=== PATIENT | female | born 1995 | race African-American/Black ===

== ENCOUNTER 2022-05-01 15:26 | Emergency (ER) | payer OTHER, MEDICAID, SELFPAY ==
[2022-05-01 15:37] VITALS: BP 137/76; PULSE 121; RESP 20; TEMP 37.3; O2SAT 100; BMI 43.2
--- NOTE | 2022-05-01 18:33 | ED.GENADULT ---
HPI - General Adult General Chief complaint: Abdominal Pain Stated complaint: Food Poisoning, Time Seen by Provider: 05/01/22 18:08 Source: patient Mode of arrival: Family Vehicle History of Present Illness HPI narrative: Patient is a 26-year-old female who is here for evaluation of a couple days of abdominal pain. She thinks that it may have been because she was traveling from [place] to the local area and thought that she ate some tuna from a gas station. She is not had any nausea nor vomiting. Had a small bowel movement this morning. No diarrhea. She is a type 2 diabetic. Does not take insulin. Does not check her blood sugars. She is also having vaginal discharge. She has had vaginal discharge for months now. She is sexually active. She also used cocaine recently. Has not been evaluated for her vaginal discharge. Has not tried any medications for it. Related Data Previous Rx's Medication Instructions Recorded fluconazole 100 mg tablet 100 mg PO DAILY #1 tab 05/01/22 (Diflucan) metronidazole 500 mg tablet 500 mg PO BID 7 days #14 tabs 05/01/22 Allergies Allergy/AdvReac Type Severity Reaction Status Date / Time No Known Drug Allergies Allergy Verified 05/01/22 15:54 Review of Systems Constitutional Constitutional: Denies fever(s) Cardiovascular Cardiovascular: Reports system reviewed and no additional complaints, except as documented Respiratory Respiratory: Reports system reviewed and no additional complaints, except as documented Gastrointestinal Gastrointestinal: Reports abdominal pain, Denies diarrhea, Denies nausea and Denies vomiting Genitourinary Genitourinary: Denies dysuria, Reports vaginal discharge and Reports vaginal odor Integumentary/Breasts Skin/Breast: Reports system reviewed and no additional complaints, except as documented Neurologic Neurologic: Reports system reviewed and no additional complaints, except as documented Hematologic/Lymphatic On Anticoagulants: No Patient History Medical History Cocaine use Social History Smoking Status: Current every day smoker Smoking Status: Current every day smoker tobacco type: cigarettes and vaping alcohol intake frequency: 0-2 drinks per day Substance Use Type: marijuana, crack/cocaine, club/kitchen and bath designer drugs, inhalants and prescription drug Exam Initial Vital Signs Initial Vital Signs: Vital Signs Temperature 99.2 F 05/01/22 15:37 Pulse Rate 121 H 05/01/22 15:37 Respiratory Rate 20 05/01/22 15:37 Blood Pressure 137/76 05/01/22 15:37 Pulse Oximetry 100 05/01/22 15:37 Oxygen Delivery Method 05/01/22 15:37 Const General: cooperative, comfortable and well developed HENNE Head: normal to inspection and normocephalic Resp Effort & Inspection: normal respiratory effort Auscultation: clear to auscultation bilaterally Cardio Rate: regular rate Rhythm: regular rhythm GI Inspection: normal to inspection and non-distended Palpation: soft and No tender External Female Exam: normal external appearance Speculum Exam - Vagina: abnormal vaginal discharge, not erythematous, no lacerations and No vaginal bleeding Speculum Exam - Cervix: normal appearance of the cervix and nontender Bimanual Exam- Vagina & Uterus: No tender OB/External & Speculum: No vaginal bleeding Back/Spine/Pelvis Back: No CVA tenderness Skin General: no rashes or lesions noted Neuro General: patient alert, patient awake, patient oriented x3 and moves all extremities Extrem General: normal to inspection and capillary refill normal Course Orders Ordered: Discontinued Medications Fluconazole (Fluconazole 100 Mg Tablet) 100 mg PO NOW ONE Stop: 05/01/22 19:33 Last Admin: 05/01/22 19:49 Dose: 100 mg Documented By: LANDEN Metronidazole (Metronidazole 500 Mg Tablet) 500 mg PO NOW ONE Stop: 05/01/22 19:33 Last Admin: 05/01/22 19:49 Dose: 500 mg Documented By: LANDEN Ondansetron HCl (Ondansetron 4 Mg Odt) 4 mg PO NOW ONE Stop: 05/01/22 18:34 Last Admin: 05/01/22 19:49 Dose: 4 mg Documented By: LANDEN Ondansetron HCl (Ondansetron 4 Mg Odt Prepack) 1 bottle [facility] ONE Stop: 05/01/22 19:33 Last Admin: 05/01/22 19:49 Dose: 1 bottle Documented By: LANDEN Vital Signs Vital signs: Vital Signs - 8 hr 05/01/22 19:50 Pulse Rate 119 H Respiratory Rate 20 Blood Pressure 136/62 Pulse Oximetry 95 Oxygen Delivery Method Room Air Medical Decision Making Lab Data Result diagrams: 05/01/22 18:50 05/01/22 18:50 Labs: Lab Results 05/01/22 05/01/22 05/01/22 Range/Units 18:05 18:18 18:50 WBC 15.3 H (4.5-11.0) X10^3/uL RBC 4.91 (4.0-5.2) X10^6/uL Hgb 12.7 (12.0-16.0) g/dL Hct 38.0 (36-46) % MCV 77.3 L (80-100) fL MCH 25.8 L (26-34) PG MCHC 33.4 (30-36) % RDW 14.8 (11.6-14.8) % Plt Count 302 (150-400) X10^3/uL Neut % (Auto) 83.5 H (50-75) % Lymph % (Auto) 7.3 L (25-40) % Moffat % (Auto) 8.5 (3-14) % Eos % (Auto) 0.1 L (2-4) % Baso % (Auto) 0.6 (0-2) % Neut # (Auto) 41339 H (8105-2040) /uL Lymph # (Auto) 1100 (2517-9337) /uL Moffat # (Auto) 1300 H (0-900) /uL Eos # (Auto) 0 (0-450) /uL Baso # (Auto) 100 (0-100) /uL Sodium (137-145) mmol/L Potassium (3.4-5.1) mmol/L Chloride (98-107) mmol/L Carbon Dioxide (22-32) mmol/L BUN (7-17) mg/dL Creatinine (0.52-1.04) mg/dL Estimated GFR (>60) mL/min BUN/Creatinine Ratio (6-22) Glucose (70-100) mg/dL Calcium (8.4-10.2) mg/dL Urine RBC 1-5/hpf (0-5/HPF) Urine WBC >100/hpf H (0-5/HPF) Ur Squamous Epith Cells 1-5 /hpf (0-5/HPF) Amorphous Sediment 1+ Urine Bacteria Many (>30) H (None) Urine Mucus 1+ H (Negative) Ur Culture Indicated? Specimen cultured Ur Chlamydia DNA (PCR) Not detected N gonorrhoeae DNA (PCR) Detected H 05/01/22 Range/Units 18:50 WBC (4.5-11.0) X10^3/uL RBC (4.0-5.2) X10^6/uL Hgb (12.0-16.0) g/dL Hct (36-46) % MCV (80-100) fL MCH (26-34) PG MCHC (30-36) % RDW (11.6-14.8) % Plt Count (150-400) X10^3/uL Neut % (Auto) (50-75) % Lymph % (Auto) (25-40) % Moffat % (Auto) (3-14) % Eos % (Auto) (2-4) % Baso % (Auto) (0-2) % Neut # (Auto) (8596-7072) /uL Lymph # (Auto) (7928-1192) /uL Moffat # (Auto) (0-900) /uL Eos # (Auto) (0-450) /uL Baso # (Auto) (0-100) /uL Sodium 135 L (137-145) mmol/L Potassium 4.4 (3.4-5.1) mmol/L Chloride 99 (98-107) mmol/L Carbon Dioxide 26 (22-32) mmol/L BUN 8 (7-17) mg/dL Creatinine 0.95 (0.52-1.04) mg/dL Estimated GFR > 60 (>60) mL/min BUN/Creatinine Ratio 8.4 (6-22) Glucose 107 H (70-100) mg/dL Calcium 9.4 (8.4-10.2) mg/dL Urine RBC (0-5/HPF) Urine WBC (0-5/HPF) Ur Squamous Epith Cells (0-5/HPF) Amorphous Sediment Urine Bacteria (None) Urine Mucus (Negative) Ur Culture Indicated? Ur Chlamydia DNA (PCR) N gonorrhoeae DNA (PCR) Point of Care Testing Test Results Negative Urine Dip Bedside Urine Glucose Negative Bedside Urine Bilirubin - Negative Bedside Urine Ketone - Negative Urine Specific [place] 1.015 Bedside Urine Occult Blood +++ Bedside Urine pH 6 Bedside Urine Protein + 30 Bedside Urine Urobilinogen - Negative Bedside Urine Nitrite - Negative Bedside Urine Leukocytes ++ 125 Esterase Point of care testing: Point of Care Testing Test Results Negative Urine Dip Bedside Urine Glucose Negative Bedside Urine Bilirubin - Negative Bedside Urine Ketone - Negative Urine Specific [place] 1.015 Bedside Urine Occult Blood +++ Bedside Urine pH 6 Bedside Urine Protein + 30 Bedside Urine Urobilinogen - Negative Bedside Urine Nitrite - Negative Bedside Urine Leukocytes ++ 125 Esterase MDM Narrative Medical decision making narrative: Patient does have a very benign exam. Was able to tolerate oral intake. Has not had any nausea vomiting or diarrhea. Has had abdominal tenderness just for the past day or so. She is having vaginal discharge which apparently has been going on for months now. She is sexually active. She is no cervical motion tenderness. Low suspicion for PID. Is positive for yeast and also Trichomonas. She was given Diflucan and also a Flagyl to start her treatment. A prescription for Flagyl was sent to the pharmacy of her choice along with a another dose of Diflucan to take at the completion of the metronidazole treatment. After the patient was discharged her gonorrhea test came back positive as well. Chlamydia was negative. I attempted to contact the patient at the number provided in the chart ([phone]) it went directly to voice mail. This message was left at 0700 hours in the morning on 05/02/2022. I did leave a voicemail asking the patient to contact the emergency department as she will need to be returned for treatment for gonorrhea. 05/02/22 @1800 I once again left a message at the phone number provided in the record to have the patient call us back at the emergency department to discuss the results of her gonorrhea. Multiple attempts have been made by myself and Dr. Alston to contact the patient to let her know of the positive culture results. We have not received a phone call back. We have also contacted the phone number listed for the patient's mother and again have not received a return call. Discharge Plan Departure Patient Disposition: Home Clinical Impression: Yeast infection of the vagina, Infection due to trichomonas (vaginalis), Nausea Instructions: Facts About Sexually Transmitted Infections, DI for Vaginal Yeast Infection, DI for Nausea -- Adult Activity Restrictions/Additional Instructions: There was a urine culture pending at the time of your discharge and we will contact you if we need to treat you with any antibiotics. You were given a 1st dose of treatment for both yeast infection and the Trichomonas infection. The treatment for the Trichomonas infection is called metronidazole. This Will continue for the next 7 days. A prescription was sent to [facility]. You were also given another prescription for medicine called Diflucan. The streets the yeast infection. Please save this pill until you have finished the metronidazole. You can contact the call center here in the hospital at [phone]. They can help you establish a primary doctor. Return to the emergency department for any new or worsening symptoms. Prescriptions: New fluconazole [Diflucan] 100 mg tablet 100 mg PO DAILY Qty: 1 0RF Rx Instructions: take after you have finished the Flagyl/metronidazole metronidazole 500 mg tablet 500 mg PO BID 7 Days Qty: 14 0RF Visit Report Forms: Patient Portal/API
[2022-05-01 18:41] LABS: Amorphous Sediment Urine 1+; Bacteria Urine Many (>30); Culture Indicated Urine Specimen Cultured; Mucus Urine 1+ (Negative); RBC Urine 1-5/HPF (0-5/HPF); Squamous Epithelial Cell Urine 1-5 /HPF (0-5/HPF); WBC Urine >100/HPF (0-5/HPF)
[2022-05-01 19:04] LABS: Add Manual Diff / Slide Review NO; Basophils Absolute Auto 100 /uL (0-100); Basophils Percent Auto 0.6 % (0-2); Eosinophils Absolute Auto 0 /uL (0-450); Eosinophils Percent Auto 0.1 % (2-4); Hemoglobin 12.7 g/dL (12.0-16.0); Lymphocytes Absolute Auto 1100 /uL (1100-4500); Lymphocytes Percent Auto 7.3 % (25-40); Mean Corpuscular HGB Conc 33.4 % (30-36); Mean Corpuscular Hemoglobin 25.8 PG (26-34); Mean Corpuscular Volume 77.3 fL (80-100); Monocytes Absolute Auto 1300 /uL (0-900); Monocytes Percent Auto 8.5 % (3-14); Neutrophils Absolute Auto 12800 /uL (1500-7000); Neutrophils Percent Auto 83.5 % (50-75); Platelet Count 302 X10^3/uL (150-400); Red Blood Cell Count 4.91 X10^6/uL (4.0-5.2); Red Cell Distribution Width 14.8 % (11.6-14.8); White Blood Cell Count 15.3 X10^3/uL (4.5-11.0)
[2022-05-01 19:13] LABS: BUN Creatinine Ratio 8.4 (6-22); Blood Urea Nitrogen 8 mg/dL (7-17); Calcium 9.4 mg/dL (8.4-10.2); Carbon Dioxide 26 mmol/L (22-32); Chloride 99 mmol/L (98-107); Estimated Glomerular Filt Rate > 60 mL/min (>60); Glucose 107 mg/dL (70-100); HEMOLYSIS < 15 (0-50); Potassium 4.4 mmol/L (3.4-5.1); Sodium 135 mmol/L (137-145)
[2022-05-01] MEDS: FLUCONAZOLE 100 MG TABLET PO (19:49)
[2022-05-01] MEDS: ONDANSETRON 4 MG ODT PO (19:49)
[2022-05-01] MEDS: ONDANSETRON 4 MG ODT PREPACK 1 BOTTLE MISC (19:49)
[2022-05-01] MEDS: metroNIDAZOLE 500 MG TABLET PO (19:49)
[2022-05-01 19:50] VITALS: BP 136/62; PULSE 119; RESP 20; O2SAT 95
[2022-05-01 20:46] LABS: Urine N gonorrhoeae DETECTED
[2022-05-01 20:49] LABS: Urine Chlamydia NOT DETECTED
== END 2022-05-01 19:54 | disposition home or self-care (01) ==
PROVIDERS: Emergency Provider Emergency Medicine
DX: B37.3 Candidiasis of vulva and vagina (principal); A59.01 Trichomonal vulvovaginitis; R11.0 Nausea
CPT/HCPCS: 80048; 81003; 81015; 81025; 85025; 87077; 87086; 87186; 87210; 87491; 87591; 99283

== ENCOUNTER 2022-06-01 07:01 | Emergency (ER) | payer OTHER, MEDICAID, SELFPAY ==
--- NOTE | 2022-06-01 07:16 | ED_ITS ---
HPI - General Adult General Chief complaint: Skin/Abscess/Foreign Body Stated complaint: lump in lt forearm growing x5 days Time Seen by Provider: 06/01/22 07:11 Source: patient Mode of arrival: Ambulatory Limitations: no limitations History of Present Illness HPI narrative: Patient is a 26-year-old female who is here for evaluation of a lump that has been growing on the inside of her left elbow for the past couple days. She states that is very tender to the touch. No fevers. She states that approximately 1 week ago she did inject ?crystal meth ?into this area. She is never had an abscess like this in the past. It does hurt somewhat when she bends her elbow but not in the joint just over where the swelling is. Has not tried anything for the symptoms prior to arrival. Related Data Previous Rx's Medication Instructions Recorded fluconazole 100 mg tablet 100 mg PO DAILY #1 tab 05/01/22 (Diflucan) Allergies Allergy/AdvReac Type Severity Reaction Status Date / Time No Known Drug Allergies Allergy Verified 06/01/22 07:21 Review of Systems Constitutional Constitutional: Reports system reviewed and no additional complaints, except as documented Musculoskeletal Musculoskeletal: Reports system reviewed and no additional complaints, except as documented Integumentary/Breasts Skin/Breast: Reports system reviewed and no additional complaints, except as documented Neurologic Neurologic: Reports system reviewed and no additional complaints, except as documented Patient History Medical History Cocaine use Social History Smoking Status: Current every day smoker Smoking Status: Current every day smoker tobacco type: cigarettes and vaping alcohol intake frequency: 0-2 drinks per day Substance Use Type: marijuana, crack/cocaine, club/printed circuit board designer drugs, inhalants and prescription drug Exam Initial Vital Signs Initial Vital Signs: Vital Signs Temperature 97.1 F L 06/01/22 07:21 Pulse Rate 97 H 06/01/22 07:21 Respiratory Rate 18 06/01/22 07:21 Blood Pressure 131/79 06/01/22 07:21 Pulse Oximetry 98 06/01/22 07:21 Oxygen Delivery Method 06/01/22 07:21 Const General: cooperative, comfortable and No ill appearing HENMT Head: normal to inspection and normocephalic Cardio Pulses: radial pulses present on the left Skin Other: Patient does have a swelling over the inside portion of the left elbow. Minimal surrounding erythema however the patient does have fairly dark skin so it is difficult to fully ascertain this. Neuro Sensory Exam: no sensory deficits noted Extrem Other: Does have full range of motion of the left elbow. Psych Appearance: grossly normal and well kempt Procedures Abscess I/D I&D #1: Site: upper extremity Side (if applicable): left Sedation/analgesia: none Local Anesthetic: lidocaine 1% Amount of anesthesia used (mL): 2 Technique: incised with #11 blade Irrigation: No Packing used?: none Course Orders Ordered: Discontinued Medications Lidocaine HCl (Lidocaine 1% (Pf)) 2 ml INJ NOW ONE Stop: 06/01/22 07:17 Last Admin: 06/01/22 07:21 Dose: 2 ml Documented By: PARKER Vital Signs Vital signs: Vital Signs - 8 hr 06/01/22 07:21 Temperature 97.1 F L Pulse Rate 97 H Respiratory Rate 18 Blood Pressure 131/79 Pulse Oximetry 98 Oxygen Delivery Method Room Air Medical Decision Making MDM Narrative Medical decision making narrative: Bedside ultrasound shows a small abscess in the area of the induration. An inc ision and drainage was performed with return of a small amount of purulent material. There is minimal if any surrounding erythema. No cultures were obtained. No indication for antibiotics given the lack of a cellulitis. The area was covered with a bandage. Patient was given return precautions follow-up instructions. She expressed understanding and agreement. Discharge Plan Departure Patient Disposition: Home Clinical Impression: Abscess of skin or subcutaneous tissue Instructions: DI for Incision and Drainage of a Skin Abscess, DI for Skin Abscess Activity Restrictions/Additional Instructions: Expect some continued drainage from the area over the next 24-36 hours. You can change the bandage as needed. You can shower like normal. You can use soap and water over the area. You can take Tylenol/ibuprofen for any discomfort. Return to the emergency department for any new or worsening symptoms. Prescriptions: No Action fluconazole [Diflucan] 100 mg tablet 100 mg PO DAILY Qty: 1 0RF Rx Instructions: take after you have finished the Flagyl/metronidazole Referrals: Miscellaneous,Doctor, MD [Primary Care Provider] -
[2022-06-01 07:21] VITALS: BP 131/79; PULSE 97; RESP 18; TEMP 36.2; O2SAT 98; BMI 39.9
[2022-06-01] MEDS: LIDOCAINE 1% (PF) 2 ML INJ (07:21)
[2022-06-01] MEDS: ACETAMINOPHEN 325 MG TABLET 650 MG PO (07:47)
== END 2022-06-01 07:52 | disposition home or self-care (01) ==
PROVIDERS: Emergency Provider Emergency Medicine
DX: L02.414 Cutaneous abscess of left upper limb (principal)
CPT/HCPCS: 10060; 99283; 99284

== ENCOUNTER 2022-07-10 07:04 | Emergency (ER) | payer OTHER, MEDICAID, SELFPAY ==
[2022-07-10] VITALS (18 sets, daily range): BP systolic 119–138; BP diastolic 66–85; PULSE 84–115; RESP 10–25; TEMP 36.4; O2SAT 100; BMI 203.3
--- NOTE | 2022-07-10 08:57 | ED_ITS ---
HPI - Extremity Problem General Chief complaint: Extremity Problem,Nontraumatic Stated complaint: legs feel cold and numb, couldnt sleep Time Seen by Provider: 07/10/22 07:15 Source: patient Mode of arrival: Ambulatory Limitations: no limitations History of Present Illness HPI Narrative: This is a 26-year-old female who states she was diagnosed with diabetes in the past year she was unsure if she is supposed to be on oral medications or insulin this was in [facility], patient also admits to polysubstance abuse including methamphetamines and fentanyl. Patient presents stating today her legs felt cold and sort of tingly. She denies fevers or chills. She denies headaches. She denies chest pain or shortness of breath. No nausea or vomiting. No diarrhea constipation. No bladder or bowel incontinence. Patient states that she has had some back pain in her lower back with bending and movement. She states this is been going on for some time. She notes her legs feel funny mostly in the lower legs. She has been able to ambulate, not having any falls. She denies similar symptoms in the past. She states no environmental issues such as cold environments that should be causing her symptoms. She denies any daily medications but was post to take something for diabetes. Denies surgeries. No known drug allergies. She does use tobacco, occasional alcohol, admits to fentanyl and methamphetamine which she states she normally smokes but has injected methamphetamines in the past. Patient defers consultation with [employer]. Related Data Previous Rx's Medication Instructions Recorded fluconazole 100 mg tablet 100 mg PO DAILY #1 tab 05/01/22 (Diflucan) Allergies Allergy/AdvReac Type Severity Reaction Status Date / Time No Known Drug Allergies Allergy Verified 07/10/22 07:34 Review of Systems Review of Systems ROS Unobtainable: All systems reviewed & are unremarkable except as noted in HPI and below Patient History Medical History Cocaine use Social History Smoking Status: Current every day smoker Smoking Status: Current every day smoker tobacco type: cigarettes and vaping alcohol intake frequency: holidays/special occasions only Substance Use Type: opiates and methamphetamine Exam Narrative Exam Narrative: GEN: well nourished, well appearing female, alert and oriented x 3, patient appears to be in mild distress. HEENT: Atraumatic, pupils are equal round reactive to light, extraocular movements are intact, nares are clear. Throat is clear without any exudates, erythema, tonsillar enlargement or uvular deviation HEART: Regular rate and rhythm without murmur, clicks, rubs. Pulses are equal in upper and lower extremities LUNGS:Lungs clear to auscultation, no wheezes, rales, crackles, chest moves symmetrically ABD:bowel sounds normal, soft, non-tender, no guarding, rebound, rigidity, no masses noted, no hepatosplenomegaly :No CVA tenderness BACK: No cervical, thoracic or lumbar vertebral point tenderness. Patient is co mfortable oral and over on the bed but otherwise normal range of motion. Patient's gait is normal. Rectal exam is deferred. Muscle strength is 5/5 in lower extremities, DTRs are 2/4 and lower extremities. Dorsalis pedis and tibialis pulses are 2+ and lower extremities. Sensation is intact in the lower extremities. MSCL: Non-tender, no muscle atrophy, muscles strength 5/5 upper and lower ex tremities, full range of motion, normal gait NEURO:CN 2-12 intact, sensation normal, reflexes 2/4 upper and lower extremities. SKIN: Rash, erythema or skin changes. Initial Vital Signs Initial Vital Signs: Vital Signs Temperature 97.6 F 07/10/22 07:23 Pulse Rate 96 H 07/10/22 07:23 Respiratory Rate 17 07/10/22 07:23 Blood Pressure 128/85 07/10/22 07:23 Pulse Oximetry 100 07/10/22 07:23 Oxygen Delivery Method 07/10/22 07:23 Course Orders Ordered: ED Orders 07/10/22 12:44 MR lumbar spine wo/w con Stat Discontinued Medications Lorazepam (Lorazepam 2 Mg/Ml Inj) 0.5 mg IV NOW ONE Stop: 07/10/22 14:01 Lorazepam (Lorazepam 2 Mg/Ml Inj) 0.5 mg IV NOW ONE Stop: 07/10/22 13:00 Last Admin: 07/10/22 13:59 Dose: 0.5 mg Documented By: NR Vital Signs Vital signs: Vital Signs - 8 hr 07/10/22 12:00 07/10/22 12:30 07/10/22 13:00 Pulse Rate 92 H 96 H 98 H Respiratory Rate 21 12 14 Blood Pressure Pulse Oximetry 100 100 100 07/10/22 13:30 07/10/22 14:00 07/10/22 14:03 Pulse Rate 94 H 96 H 99 H Respiratory Rate 25 H 12 18 Blood Pressure Pulse Oximetry 100 100 100 07/10/22 14:03 07/10/22 16:27 07/10/22 16:28 Pulse Rate 103 H 115 H Respiratory Rate Blood Pressure 131/80 Pulse Oximetry 100 100 07/10/22 16:28 07/10/22 16:30 Pulse Rate 110 H Respiratory Rate Blood Pressure 127/81 Pulse Oximetry 100 MDM - Extremity (Nontraumatic) Lab Data Result diagrams: 07/10/22 09:40 07/10/22 09:40 Labs: Lab Results 07/10/22 07/10/22 07/10/22 Range/Units 09:40 09:40 09:40 WBC 7.3 (4.5-11.0) X10^3/uL RBC 4.75 (4.0-5.2) X10^6/uL Hgb 12.3 (12.0-16.0) g/dL Hct 37.2 (36-46) % MCV 78.4 L (80-100) fL MCH 25.9 L (26-34) PG MCHC 33.0 (30-36) % RDW 15.2 H (11.6-14.8) % Plt Count 350 (150-400) X10^3/uL Neut % (Auto) 71.0 (50-75) % Lymph % (Auto) 19.1 L (25-40) % [place] % (Auto) 8.5 (3-14) % Eos % (Auto) 0.6 L (2-4) % Baso % (Auto) 0.8 (0-2) % Neut # (Auto) 5200 (8490-8991) /uL Lymph # (Auto) 1400 (1077-4622) /uL [place] # (Auto) 600 (0-900) /uL Eos # (Auto) 0 (0-450) /uL Baso # (Auto) 100 (0-100) /uL ESR 42 H (0-20) MM/HR Sodium 141 (137-145) mmol/L Potassium 3.8 (3.4-5.1) mmol/L Chloride 100 (98-107) mmol/L Carbon Dioxide 29 (22-32) mmol/L BUN 10 (7-17) mg/dL Creatinine 0.88 (0.52-1.04) mg/dL Estimated GFR > 60 (>60) mL/min BUN/Creatinine Ratio 11.4 (6-22) Glucose 89 (70-100) mg/dL Hemoglobin A1c (4.0-6.0) % Lactate 0.9 (0.7-2.1) mmol/L Calcium 9.6 (8.4-10.2) mg/dL Total Bilirubin 0.7 (0.2-1.3) mg/dL AST 44 H (14-36) IU/L ALT 21 (<35) IU/L Alkaline Phosphatase 87 (38-126) U/L Total Creatine Kinase 754 H (30-135) U/L CK-MB (CK-2) 3.60 H (<2.37) ng/mL CK-MB (CK-2) Rel Index 0.5 L (1.5-5.0) % Troponin I < 0.012 (0.01-0.034) ng/mL C-Reactive Protein 1.5 H (<1.0) mg/dL Total Protein 8.8 H (6.3-8.2) g/dL Albumin 4.4 (3.5-5.0) g/dL Globulin 4.4 H (1.7-4.1) g/dL Albumin/Globulin Ratio 1.0 (1.0-2.8) Procalcitonin 0.08 (<0.5) ng/mL Chlamy pneumoniae PCR (Not Detect) Adenovirus (PCR) (Not Detect) B. pertussis DNA (PCR) (Not Detecte) B.parapertussis DNA PCR (Not Detecte) Coronavirus OC43 (PCR) (Not Detect) Coronavirus HKU1 (PCR) (Not Detect) Coronavirus 229E (PCR) (Not Detect) SARS-CoV-2 (PCR) (Negative) Coronavirus NL63 (PCR) (Not Detect) Human Metapneumovir PCR (Not Detect) Influenza A (RT-PCR) (NEGATIVE) Influenza Type A (PCR) (Not Detect) Influenza B (RT-PCR) (NEGATIVE) Influenza Type B (PCR) (Not Detect) M. pneumoniae (PCR) (Not Detect) Parainfluenza 1 (PCR) (Not Detect) Parainfluenza 2 (PCR) (Not Detect) Parainfluenza 3 (PCR) (Not Detect) Parainfluenza 4 (PCR) (Not Detect) RSV (PCR) (Negative) Entero/Rhino (PCR) (Not Detect) 07/10/22 07/10/22 07/10/22 Range/Units 09:40 10:16 10:16 WBC (4.5-11.0) X10^3/uL RBC (4.0-5.2) X10^6/uL Hgb (12.0-16.0) g/dL Hct (36-46) % MCV (80-100) fL MCH (26-34) PG MCHC (30-36) % RDW (11.6-14.8) % Plt Count (150-400) X10^3/uL Neut % (Auto) (50-75) % Lymph % (Auto) (25-40) % [place] % (Auto) (3-14) % Eos % (Auto) (2-4) % Baso % (Auto) (0-2) % Neut # (Auto) (4906-7820) /uL Lymph # (Auto) (8200-9833) /uL [place] # (Auto) (0-900) /uL Eos # (Auto) (0-450) /uL Baso # (Auto) (0-100) /uL ESR (0-20) MM/HR Sodium (137-145) mmol/L Potassium (3.4-5.1) mmol/L Chloride (98-107) mmol/L Carbon Dioxide (22-32) mmol/L BUN (7-17) mg/dL Creatinine (0.52-1.04) mg/dL Estimated GFR (>60) mL/min BUN/Creatinine Ratio (6-22) Glucose (70-100) mg/dL Hemoglobin A1c 6.5 H (4.0-6.0) % Lactate (0.7-2.1) mmol/L Calcium (8.4-10.2) mg/dL Total Bilirubin (0.2-1.3) mg/dL AST (14-36) IU/L ALT (<35) IU/L Alkaline Phosphatase (38-126) U/L Total Creatine Kinase (30-135) U/L CK-MB (CK-2) (<2.37) ng/mL CK-MB (CK-2) Rel Index (1.5-5.0) % Troponin I (0.01-0.034) ng/mL C-Reactive Protein (<1.0) mg/dL Total Protein (6.3-8.2) g/dL Albumin (3.5-5.0) g/dL Globulin (1.7-4.1) g/dL Albumin/Globulin Ratio (1.0-2.8) Procalcitonin (<0.5) ng/mL Chlamy pneumoniae PCR Not detected (Not Detect) Adenovirus (PCR) Not detected (Not Detect) B. pertussis DNA (PCR) Not detected (Not Detecte) B.parapertussis DNA PCR Not detected (Not Detecte) Coronavirus OC43 (PCR) Not detected (Not Detect) Coronavirus HKU1 (PCR) Not detected (Not Detect) Coronavirus 229E (PCR) Not detected (Not Detect) SARS-CoV-2 (PCR) Negative Not detected (Negative) Coronavirus NL63 (PCR) Not detected (Not Detect) Human Metapneumovir PCR Not detected (Not Detect) Influenza A (RT-PCR) Flu a negative (NEGATIVE) Influenza Type A (PCR) Not detected (Not Detect) Influenza B (RT-PCR) Flu b negative (NEGATIVE) Influenza Type B (PCR) Not detected (Not Detect) M. pneumoniae (PCR) Not detected (Not Detect) Parainfluenza 1 (PCR) Not detected (Not Detect) Parainfluenza 2 (PCR) Not detected (Not Detect) Parainfluenza 3 (PCR) Not detected (Not Detect) Parainfluenza 4 (PCR) Not detected (Not Detect) RSV (PCR) Negative Not detected (Negative) Entero/Rhino (PCR) Not detected (Not Detect) Point of Care Testing Glucose POC 81 Imaging Data MRI Lspine: Radiologist's Impression: Close Lumbar Spine MRI (Signed) Corby Champion - 07/10/22 Launch?[address] [address] Magnetic Resonance Report Signed Patient: Pedrito Sanon MR#: [id number] : 1995 Acct:[id number] Age/Sex: 26 / F Date of Service: 07/10/22 Loc: ED Accession Number: [id number] ?? Procedure: MR lumbar spine wo/w con Ordering Provider: Irene Alston D.O. PROCEDURE:? MR LUMBAR SPINE WO/W CON ? INDICATIONS:? back pain, legs feel funny, hx ivda ? TECHNIQUE:? Noncontrast sagittal T1 spin echo and T2 fast spin echo, sagittal STIR, axial T1 and T2 fast spin echo through the lumbar spine.? In cases with scoliosis, additional coronal T2 fast spin echo may be performed.? After the administration of contrast, sagittal and axial T1 spin echo with fat saturation through the lumbar spine.? ? COMPARISON:? None. ? FINDINGS:? Image quality:? Excellent.? ? Alignment and curvature:? There is normal bony alignment.? ? Marrow:? Marrow is of normal overall signal.? No acute vertebral body compression fractures.? No suspicious marrow enhancement.? ? Spinal cord:? Conus medullaris terminates at the L1 level.? Visualized spinal cord demonstrates normal signal, without suspicious enhancement.? ? Paraspinous soft tissues:? No paravertebral masses or abnormal enhancement.? ? T12-L1:? Normal appearance.? ? L1-L2:? Normal appearance.? ? L2-L3:? Normal appearance.? ? L3-L4:? Normal appearance.? ? L4-L5:? The disc height and disk signal are well-preserved. Mild generalized disc bulge is seen.? There is a superimposed central disc protrusion. ? There is mild right-sided and no left-sided neural foraminal narrowing. Minimal central canal narrowing is seen.? ? L5-S1:? Mild loss of disc height is seen. Loss of disc signal is seen.? Mild disc bulge is seen, with a central disc extrusion, with mild inferior migration of the disc material.? Mild to moderate facet hypertrophy is seen.? Mild to moderate bilateral neural foraminal narrowing can be seen, left worse than right. Mild central canal narrowing is seen.? ? ? IMPRESSION:? No findings of epidural abscess, discitis, or osteomyelitis can be seen within the thoracic spine.? - If there is strong clinical concern for spinal infection in this patient, please consider follow-up cervical spine MRI/thoracic spine MRI (without and with contrast) for further evaluation. ? Premature lower lumbar spine degenerative changes are seen, including a mild central disc extrusion at the L5-S1 level. ? No abnormal enhancement is seen.? Dictated by: Corby Champion M.D. on 07/10/2022 at 14:41 ? ? Approved by: Corby Champion M.D. on 07/10/2022 at 14:44?? MDM Narrative Medical decision making narrative: This is a 26-year-old female who comes in with vague complaint of weakness and sensation changes that are coldness in her legs. She appears neurovascularly intact she walked into the department she does not has significant changes neurologically, influenza swab was negative. Patient does have a history of injecting drugs, she has some mild low back pain although not reproducible with palpation no skin changes but L-spine MRI was obtained, labs show some elevated ESR CRP, cultures are pending but no other clear infection was found. Patient does not have other clear source, her examination does not me highly suspicious for cervical or thoracic involvement and her overall exam is reassuring so will discharge but with return precautions. Patient is ambulating in the department. She does have a hemoglobin A1c of 6.5, discussed she would benefit from being on oral medication. Discharge Plan Departure Patient Disposition: Home Clinical Impression: Lower extremity pain Activity Restrictions/Additional Instructions: Your imaging today is reassuring. You do have blood cultures pending this take 48 hours to result if positive we will contact you for antibiotics. You do appear to have diabetes, your hemoglobin A1c is 6.5 it is recommended you take medication daily. Please follow-up to start this medication. Your MRI does not show any acute change today, if you have worsening or persistent symptoms please follow-up for further workup with your physician. You can take and/or ibuprofen for discomfort. If you develop fevers, new or worsening chest pain, shortness of breath, new weakness, loss of sensation, loss of bowel or bladder control or other new or concerning changes please return. Prescriptions: No Action fluconazole [Diflucan] 100 mg tablet 100 mg PO DAILY Qty: 1 0RF Rx Instructions: take after you have finished the Flagyl/metronidazole Referrals: Reece Moser MD [Physician] - Miscellaneous,MD Elpidio [Primary Care Provider] - Stand Alone Forms: Work Release Note Visit Report Forms: Patient Portal/API
--- NOTE | 2022-07-10 09:13 | PC.NURSE ---
pt woke up in middle of night feeling cold extremities starting at feet and getting worse. moved up to mid thighs.
[2022-07-10 09:49] LABS: Add Manual Diff / Slide Review NO; Basophils Absolute Auto 100 /uL (0-100); Basophils Percent Auto 0.8 % (0-2); Eosinophils Absolute Auto 0 /uL (0-450); Eosinophils Percent Auto 0.6 % (2-4); Hematocrit 37.2 % (36-46); Hemoglobin 12.3 g/dL (12.0-16.0); Lymphocytes Absolute Auto 1400 /uL (1100-4500); Lymphocytes Percent Auto 19.1 % (25-40); Mean Corpuscular Hemoglobin 25.9 PG (26-34); Mean Corpuscular Volume 78.4 fL (80-100); Monocytes Absolute Auto 600 /uL (0-900); Monocytes Percent Auto 8.5 % (3-14); Neutrophils Absolute Auto 5200 /uL (1500-7000); Platelet Count 350 X10^3/uL (150-400); Red Blood Cell Count 4.75 X10^6/uL (4.0-5.2); Red Cell Distribution Width 15.2 % (11.6-14.8); White Blood Cell Count 7.3 X10^3/uL (4.5-11.0)
[2022-07-10 10:05] LABS: Lactate (Lactic Acid) 0.9 mmol/L (0.7-2.1)
[2022-07-10 10:07] LABS: Hemoglobin A1C% w Est Avg Glu 6.5 % (4.0-6.0)
[2022-07-10 10:10] LABS: Alanine Aminotransferase 21 IU/L (<35); Albumin 4.4 g/dL (3.5-5.0); Alkaline Phosphatase 87 U/L (38-126); Aspartate Aminotransferase 44 IU/L (14-36); BUN Creatinine Ratio 11.4 (6-22); Bilirubin Total 0.7 mg/dL (0.2-1.3); Blood Urea Nitrogen 10 mg/dL (7-17); C-Reactive Protein Quant 1.5 mg/dL (<1.0); Calcium 9.6 mg/dL (8.4-10.2); Carbon Dioxide 29 mmol/L (22-32); Chloride 100 mmol/L (98-107); Creatine Kinase 754 U/L (30-135); Estimated Glomerular Filt Rate > 60 mL/min (>60); Globulin 4.4 g/dL (1.7-4.1); Glucose 89 mg/dL (70-100); HEMOLYSIS < 15 (0-50); Potassium 3.8 mmol/L (3.4-5.1); Sodium 141 mmol/L (137-145); Total Protein 8.8 g/dL (6.3-8.2)
[2022-07-10 10:18] LABS: Erythrocyte Sedimentation Rate 42 MM/HR (0-20)
[2022-07-10 10:21] LABS: Troponin I < 0.012 ng/mL (0.01-0.034)
[2022-07-10 10:22] LABS: CKMB % Relative Index 0.5 % (1.5-5.0)
[2022-07-10 10:26] LABS: Procalcitonin 0.08 ng/mL (<0.5)
[2022-07-10 11:09] LABS: Influenza A - CEPHEID Flu A NEGATIVE (NEGATIVE); Influenza B - CEPHEID Flu B NEGATIVE (NEGATIVE); Respiratory Syncytial Virus Negative (Negative)
[2022-07-10 11:18] LABS: COVID-19 CEPHEID 4-PLEX PCR Negative (Negative)
[2022-07-10 11:26] LABS: Adenovirus Not Detected (Not Detect)
[2022-07-10 11:27] LABS: B. parapertussis Not Detected (Not Detecte); Bordetella pertussis Not Detected (Not Detecte); Chlamydophila pneumoniae Not Detected (Not Detect); Coronavirus 229E Not Detected (Not Detect); Coronavirus HKU1 Not Detected (Not Detect); Coronavirus NL 63 Not Detected (Not Detect); Coronavirus OC43 Not Detected (Not Detect); Human Metapneumovirus Not Detected (Not Detect); Human Rhinovirus/Enterovirus Not Detected (Not Detect); Influenza A Not Detected (Not Detect); Influenza B Not Detected (Not Detect); Mycoplasma pneumoniae Not Detected (Not Detect); Parainfluenza Virus 1 Not Detected (Not Detect); Parainfluenza Virus 2 Not Detected (Not Detect); Parainfluenza Virus 3 Not Detected (Not Detect); Parainfluenza Virus 4 Not Detected (Not Detect); Respiratory Syncytial Virus Not Detected (Not Detect); SARS- CoV-2 Not Detected (Not Detecte)
--- NOTE | 2022-07-10 12:44 | DI.MRI.S_ITS ---
PROCEDURE: MR LUMBAR SPINE WO/W CON INDICATIONS: back pain, legs feel funny, hx ivda TECHNIQUE: Noncontrast sagittal T1 spin echo and T2 fast spin echo, sagittal STIR, axial T1 and T2 fast spin echo through the lumbar spine. In cases with scoliosis, additional coronal T2 fast spin echo may be performed. After the administration of contrast, sagittal and axial T1 spin echo with fat saturation through the lumbar spine. COMPARISON: None. FINDINGS: Image quality: Excellent. Alignment and curvature: There is normal bony alignment. Marrow: Marrow is of normal overall signal. No acute vertebral body compression fractures. No suspicious marrow enhancement. Spinal cord: Conus medullaris terminates at the L1 level. Visualized spinal cord demonstrates normal signal, without suspicious enhancement. Paraspinous soft tissues: No paravertebral masses or abnormal enhancement. T12-L1: Normal appearance. L1-L2: Normal appearance. L2-L3: Normal appearance. L3-L4: Normal appearance. L4-L5: The disc height and disk signal are well-preserved. Mild generalized disc bulge is seen. There is a superimposed central disc protrusion. There is mild right-sided and no left-sided neural foraminal narrowing. Minimal central canal narrowing is seen. L5-S1: Mild loss of disc height is seen. Loss of disc signal is seen. Mild disc bulge is seen, with a central disc extrusion, with mild inferior migration of the disc material. Mild to moderate facet hypertrophy is seen. Mild to moderate bilateral neural foraminal narrowing can be seen, left worse than right. Mild central canal narrowing is seen. IMPRESSION: No findings of epidural abscess, discitis, or osteomyelitis can be seen within the thoracic spine. - If there is strong clinical concern for spinal infection in this patient, please consider follow-up cervical spine MRI/thoracic spine MRI (without and with contrast) for further evaluation. Premature lower lumbar spine degenerative changes are seen, including a mild central disc extrusion at the L5-S1 level. No abnormal enhancement is seen. Dictated by: Corby Champion M.D. on 07/10/2022 at 14:41 Approved by: Corby Champion M.D. on 07/10/2022 at 14:44
[2022-07-10] MEDS: LORazepam 2 MG/ML INJ 0.5 MG IV (13:59)
== END 2022-07-10 16:36 | disposition home or self-care (01) ==
PROVIDERS: Emergency Provider Emergency Medicine
DX: M79.605 Pain in left leg (principal); M79.604 Pain in right leg; R53.1 Weakness; M54.50 Low back pain, unspecified
CPT/HCPCS: 0241U; 36415; 72158; 80053; 82550; 82553; 82962; 83036; 83605; 84145; 84484; 85025; 85651; 86140; 87040; 87633; 99284; J2060

== ENCOUNTER 2022-08-12 13:46 | Emergency (ER) | payer OTHER, MEDICAID, SELFPAY ==
[2022-08-12] VITALS (25 sets, daily range): BP systolic 97–132; BP diastolic 56–91; PULSE 84–109; RESP 10–24; TEMP 36.6; O2SAT 95–100; BMI 37.1
--- NOTE | 2022-08-12 14:43 | ED_ITS ---
HPI - Overdose <Alma Meek DO - Last Filed: 08/17/22 07:22> General Chief Complaint: Toxicology Problem Stated Complaint: unresponsive, but breathing Time Seen by Provider: 08/12/22 13:55 Source: EMS Mode of arrival: EMS History of Present Illness HPI Narrative: Patient is a healthy 26-year-old female who presents as an overdose. She was at her aunt's house she went outside to smoke. She admits to crushing 4 pills and smoking them. She was found unresponsive. She received 4 mg of Narcan intranasally and 2 IV. She reports that she has had thoughts of hurting herself. In fact she reported to her brother the other day that she thought she might want to kill herself. It is unclear if this is intentional or not. She is quite upset. Related Data Previous Rx's Medication Instructions Recorded fluconazole 100 mg tablet 100 mg PO DAILY #1 tab 05/01/22 (Diflucan) Allergies Allergy/AdvReac Type Severity Reaction Status Date / Time No Known Drug Allergies Allergy Verified 07/10/22 07:34 Review of Systems <Alma Meek DO - Last Filed: 08/17/22 07:22> Review of Systems ROS Unobtainable: All systems reviewed & are unremarkable except as noted in HPI and below Patient History <DO Jean-Claude James Last Filed: 08/17/22 07:22> Medical History Cocaine use Social History Smoking Status: Current every day smoker Smoking Status: Current every day smoker tobacco type: cigarettes and vaping alcohol intake frequency: holidays/special occasions only Substance Use Type: marijuana, crack/cocaine, heroin, opiates and methamphetamine Exam <Alma Meek DO - Last Filed: 08/17/22 07:22> Initial Vital Signs Initial Vital Signs: Vital Signs Pulse Rate 109 H 08/12/22 13:57 Pulse Oximetry 100 08/12/22 13:57 Oxygen Delivery Method 08/12/22 13:57 Oxygen Flow Rate 2 08/12/22 13:57 GENERAL: Tearful shaking responsive HEENT: Head atraumatic,EOMI, pupils reactive, face symmetric, moist mucous membranes CARDIOVASCULAR: Regular rate and rhythm without murmurs, rubs or gallops. RESPIRATORY: Breath sounds equal bilaterally, no wheezes rales or rhonchi. ABDOMEN: Soft, nontender. Normoactive bowel sounds all 4 quadrants. No g uarding or rebound. EXTREMITIES: Normal range of motion, no clubbing or edema. Neurovascularly inta ct NEUROLOGICAL: Alert and oriented x4. SKIN: Warm, dry, no laceration, no petechiae, no rashes or lesions. <Edmar Walden, DO - Last Filed: 08/13/22 03:51> Initial Vital Signs Initial Vital Signs: Vital Signs Pulse Rate 109 H 08/12/22 13:57 Pulse Oximetry 100 08/12/22 13:57 Oxygen Delivery Method 08/12/22 13:57 Oxygen Flow Rate 2 08/12/22 13:57 Course <Alma Meek DO - Last Filed: 08/17/22 07:22> Orders Ordered: Discontinued Medications Ondansetron HCl (Ondansetron 4 Mg/2 Ml Inj) 4 mg IV NOW ONE Stop: 08/12/22 13:57 Last Admin: 08/12/22 15:46 Dose: Not Given Documented By: HERBERT Vital Signs Vital signs: Vital Signs - 8 hr 08/12/22 19:59 08/12/22 20:30 08/12/22 20:00 Pulse Rate 93 H 84 93 H Blood Pressure 108/66 109/58 L Pulse Oximetry 100 99 99 Oxygen Delivery Method Room Air Room Air 08/12/22 20:01 08/12/22 20:01 08/12/22 20:30 Pulse Rate 93 H Blood Pressure 106/59 L 109/58 L Pulse Oximetry 100 Oxygen Delivery Method 08/12/22 20:30 08/12/22 21:00 08/12/22 21:00 Pulse Rate 84 91 H Blood Pressure 109/58 L Pulse Oximetry 99 96 Oxygen Delivery Method 08/12/22 21:30 08/12/22 21:30 08/12/22 22:00 Pulse Rate 92 H 92 H Blood Pressure 97/56 L 97/56 L 104/56 L Pulse Oximetry 96 96 Oxygen Delivery Method 08/12/22 22:00 08/12/22 23:30 08/13/22 00:01 Pulse Rate 102 H 93 H 90 Blood Pressure 98/60 104/58 L Pulse Oximetry 96 96 97 Oxygen Delivery Method Room Air Room Air 08/13/22 00:33 08/13/22 01:07 08/13/22 01:39 Pulse Rate 93 H 96 H 94 H Blood Pressure 106/55 L 106/55 L 108/55 L Pulse Oximetry 94 89 L 98 Oxygen Delivery Method Room Air Room Air Room Air 08/13/22 02:10 08/13/22 02:40 08/13/22 03:19 Pulse Rate 89 92 H 87 Blood Pressure 110/56 L 109/56 L 116/72 Pulse Oximetry 97 95 100 Oxygen Delivery Method Room Air Room Air Room Air <Edmar Walden, DO - Last Filed: 08/13/22 03:51> Orders Ordered: Discontinued Medications Ondansetron HCl (Ondansetron 4 Mg/2 Ml Inj) 4 mg IV NOW ONE Stop: 08/12/22 13:57 Last Admin: 08/12/22 15:46 Dose: Not Given Documented By: HERBERT Vital Signs Vital signs: Vital Signs - 8 hr 08/12/22 19:59 08/12/22 20:30 08/12/22 20:00 Pulse Rate 93 H 84 93 H Blood Pressure 108/66 109/58 L Pulse Oximetry 100 99 99 Oxygen Delivery Method Room Air Room Air 08/12/22 20:01 08/12/22 20:01 08/12/22 20:30 Pulse Rate 93 H Blood Pressure 106/59 L 109/58 L Pulse Oximetry 100 Oxygen Delivery Method 08/12/22 20:30 08/12/22 21:00 08/12/22 21:00 Pulse Rate 84 91 H Blood Pressure 109/58 L Pulse Oximetry 99 96 Oxygen Delivery Method 08/12/22 21:30 08/12/22 21:30 08/12/22 22:00 Pulse Rate 92 H 92 H Blood Pressure 97/56 L 97/56 L 104/56 L Pulse Oximetry 96 96 Oxygen Delivery Method 08/12/22 22:00 08/12/22 23:30 08/13/22 00:01 Pulse Rate 102 H 93 H 90 Blood Pressure 98/60 104/58 L Pulse Oximetry 96 96 97 Oxygen Delivery Method Room Air Room Air 08/13/22 00:33 08/13/22 01:07 08/13/22 01:39 Pulse Rate 93 H 96 H 94 H Blood Pressure 106/55 L 106/55 L 108/55 L Pulse Oximetry 94 89 L 98 Oxygen Delivery Method Room Air Room Air Room Air 08/13/22 02:10 08/13/22 02:40 08/13/22 03:19 Pulse Rate 89 92 H 87 Blood Pressure 110/56 L 109/56 L 116/72 Pulse Oximetry 97 95 100 Oxygen Delivery Method Room Air Room Air Room Air MDM - Overdose <Alma Meek, DO - Last Filed: 08/17/22 07:22> Lab Data Result diagrams: 08/12/22 14:40 08/12/22 14:40 Labs: Lab Results 08/12/22 08/12/22 08/12/22 Range/Units 14:40 14:40 14:40 WBC 9.5 (4.5-11.0) X10^3/uL RBC 4.87 (4.0-5.2) X10^6/uL Hgb 12.6 (12.0-16.0) g/dL Hct 39.1 (36-46) % MCV 80.2 (80-100) fL MCH 26.0 (26-34) PG MCHC 32.4 (30-36) % RDW 14.9 H (11.6-14.8) % Plt Count 294 (150-400) X10^3/uL Neut % (Auto) 85.5 H (50-75) % Lymph % (Auto) 9.0 L (25-40) % [place] % (Auto) 5.1 (3-14) % Eos % (Auto) 0.2 L (2-4) % Baso % (Auto) 0.2 (0-2) % Neut # (Auto) 8100 H (2705-9655) /uL Lymph # (Auto) 900 L (7567-7357) /uL [place] # (Auto) 500 (0-900) /uL Eos # (Auto) 0 (0-450) /uL Baso # (Auto) 0 (0-100) /uL Sodium 134 L (137-145) mmol/L Potassium 5.0 (3.4-5.1) mmol/L Chloride 98 (98-107) mmol/L Carbon Dioxide 28 (22-32) mmol/L BUN 10 (7-17) mg/dL Creatinine 0.92 (0.52-1.04) mg/dL Estimated GFR > 60 (>60) mL/min BUN/Creatinine Ratio 10.9 (6-22) Glucose 206 H (70-100) mg/dL Lactate 2.1 (0.7-2.1) mmol/L Calcium 8.7 (8.4-10.2) mg/dL Total Bilirubin 0.3 (0.2-1.3) mg/dL AST 24 (14-36) IU/L ALT 18 (<35) IU/L Alkaline Phosphatase 80 (38-126) U/L Total Protein 8.2 (6.3-8.2) g/dL Albumin 4.2 (3.5-5.0) g/dL Globulin 4.0 (1.7-4.1) g/dL Albumin/Globulin Ratio 1.1 (1.0-2.8) Serum , Qual (Negative) Salicylates < 1.0 (<20) mg/dL U Opiates 300ng/mL cut (Negative) Ur Oxycodone Screen (Negative) Urine Methadone Screen (Negative) Acetaminophen < 10 (10-30) ug/mL Ur Barbiturates Screen (Negative) U Tricyclic Antidepress (Negative) Ur Phencyclidine Scrn (Negative) Ur Amphetamines Screen (Negative) U Methamphetamines Scrn (Negative) Ur MDMA Scrn (Ecstasy) (Negative) U Benzodiazepines Scrn (Negative) Urine Cocaine Screen (Negative) U Marijuana (THC) Screen (Negative) Ethyl Alcohol < 10 ( - 10) mg/dL SARS-CoV-2 (PCR) (Negative) Influenza A (RT-PCR) (NEGATIVE) Influenza B (RT-PCR) (NEGATIVE) RSV (PCR) (Negative) 08/12/22 08/12/22 08/12/22 Range/Units 14:40 16:20 16:28 WBC (4.5-11.0) X10^3/uL RBC (4.0-5.2) X10^6/uL Hgb (12.0-16.0) g/dL Hct (36-46) % MCV (80-100) fL MCH (26-34) PG MCHC (30-36) % RDW (11.6-14.8) % Plt Count (150-400) X10^3/uL Neut % (Auto) (50-75) % Lymph % (Auto) (25-40) % [place] % (Auto) (3-14) % Eos % (Auto) (2-4) % Baso % (Auto) (0-2) % Neut # (Auto) (8232-9884) /uL Lymph # (Auto) (7369-1921) /uL [place] # (Auto) (0-900) /uL Eos # (Auto) (0-450) /uL Baso # (Auto) (0-100) /uL Sodium (137-145) mmol/L Potassium (3.4-5.1) mmol/L Chloride (98-107) mmol/L Carbon Dioxide (22-32) mmol/L BUN (7-17) mg/dL Creatinine (0.52-1.04) mg/dL Estimated GFR (>60) mL/min BUN/Creatinine Ratio (6-22) Glucose (70-100) mg/dL Lactate (0.7-2.1) mmol/L Calcium (8.4-10.2) mg/dL Total Bilirubin (0.2-1.3) mg/dL AST (14-36) IU/L ALT (<35) IU/L Alkaline Phosphatase (38-126) U/L Total Protein (6.3-8.2) g/dL Albumin (3.5-5.0) g/dL Globulin (1.7-4.1) g/dL Albumin/Globulin Ratio (1.0-2.8) Serum , Qual Negative (Negative) Salicylates (<20) mg/dL U Opiates 300ng/mL cut Negative (Negative) Ur Oxycodone Screen Negative (Negative) Urine Methadone Screen Negative (Negative) Acetaminophen (10-30) ug/mL Ur Barbiturates Screen Negative (Negative) U Tricyclic Antidepress Negative (Negative) Ur Phencyclidine Scrn Negative (Negative) Ur Amphetamines Screen Negative (Negative) U Methamphetamines Scrn Negative (Negative) Ur MDMA Scrn (Ecstasy) Negative (Negative) U Benzodiazepines Scrn Negative (Negative) Urine Cocaine Screen Negative (Negative) U Marijuana (THC) Screen Negative (Negative) Ethyl Alcohol ( - 10) mg/dL SARS-CoV-2 (PCR) Negative (Negative) Influenza A (RT-PCR) (NEGATIVE) Influenza B (RT-PCR) (NEGATIVE) RSV (PCR) (Negative) 08/13/22 Range/Units 00:40 WBC (4.5-11.0) X10^3/uL RBC (4.0-5.2) X10^6/uL Hgb (12.0-16.0) g/dL Hct (36-46) % MCV (80-100) fL MCH (26-34) PG MCHC (30-36) % RDW (11.6-14.8) % Plt Count (150-400) X10^3/uL Neut % (Auto) (50-75) % Lymph % (Auto) (25-40) % [place] % (Auto) (3-14) % Eos % (Auto) (2-4) % Baso % (Auto) (0-2) % Neut # (Auto) (2357-5784) /uL Lymph # (Auto) (9050-8735) /uL [place] # (Auto) (0-900) /uL Eos # (Auto) (0-450) /uL Baso # (Auto) (0-100) /uL Sodium (137-145) mmol/L Potassium (3.4-5.1) mmol/L Chloride (98-107) mmol/L Carbon Dioxide (22-32) mmol/L BUN (7-17) mg/dL Creatinine (0.52-1.04) mg/dL Estimated GFR (>60) mL/min BUN/Creatinine Ratio (6-22) Glucose (70-100) mg/dL Lactate (0.7-2.1) mmol/L Calcium (8.4-10.2) mg/dL Total Bilirubin (0.2-1.3) mg/dL AST (14-36) IU/L ALT (<35) IU/L Alkaline Phosphatase (38-126) U/L Total Protein (6.3-8.2) g/dL Albumin (3.5-5.0) g/dL Globulin (1.7-4.1) g/dL Albumin/Globulin Ratio (1.0-2.8) Serum , Qual (Negative) Salicylates (<20) mg/dL U Opiates 300ng/mL cut (Negative) Ur Oxycodone Screen (Negative) Urine Methadone Screen (Negative) Acetaminophen (10-30) ug/mL Ur Barbiturates Screen (Negative) U Tricyclic Antidepress (Negative) Ur Phencyclidine Scrn (Negative) Ur Amphetamines Screen (Negative) U Methamphetamines Scrn (Negative) Ur MDMA Scrn (Ecstasy) (Negative) U Benzodiazepines Scrn (Negative) Urine Cocaine Screen (Negative) U Marijuana (THC) Screen (Negative) Ethyl Alcohol ( - 10) mg/dL SARS-CoV-2 (PCR) Negative (Negative) Influenza A (RT-PCR) Flu a negative (NEGATIVE) Influenza B (RT-PCR) Flu b negative (NEGATIVE) RSV (PCR) Negative (Negative) Point of Care Testing Glucose POC 190 MDM Narrative Medical decision making narrative: Patient overdosed on opiates was given Narcan in field by EMS. Now awake and shaking. Very remorseful and tearful. She is requesting help and detox. Also thinks that it was intentional. She is had suicidal thoughts. Blood work is ov erall reassuring. Patient is medically cleared. She is been evaluated by social work waiting for voluntary placement. Signed out to Dr. Walden <Edmar Walden, DO - Last Filed: 08/13/22 03:51> Lab Data Labs: Lab Results 08/12/22 08/12/22 08/12/22 Range/Units 14:40 14:40 14:40 WBC 9.5 (4.5-11.0) X10^3/uL RBC 4.87 (4.0-5.2) X10^6/uL Hgb 12.6 (12.0-16.0) g/dL Hct 39.1 (36-46) % MCV 80.2 (80-100) fL MCH 26.0 (26-34) PG MCHC 32.4 (30-36) % RDW 14.9 H (11.6-14.8) % Plt Count 294 (150-400) X10^3/uL Neut % (Auto) 85.5 H (50-75) % Lymph % (Auto) 9.0 L (25-40) % [place] % (Auto) 5.1 (3-14) % Eos % (Auto) 0.2 L (2-4) % Baso % (Auto) 0.2 (0-2) % Neut # (Auto) 8100 H (8279-0085) /uL Lymph # (Auto) 900 L (0015-3172) /uL [place] # (Auto) 500 (0-900) /uL Eos # (Auto) 0 (0-450) /uL Baso # (Auto) 0 (0-100) /uL Sodium 134 L (137-145) mmol/L Potassium 5.0 (3.4-5.1) mmol/L Chloride 98 (98-107) mmol/L Carbon Dioxide 28 (22-32) mmol/L BUN 10 (7-17) mg/dL Creatinine 0.92 (0.52-1.04) mg/dL Estimated GFR > 60 (>60) mL/min BUN/Creatinine Ratio 10.9 (6-22) Glucose 206 H (70-100) mg/dL Lactate 2.1 (0.7-2.1) mmol/L Calcium 8.7 (8.4-10.2) mg/dL Total Bilirubin 0.3 (0.2-1.3) mg/dL AST 24 (14-36) IU/L ALT 18 (<35) IU/L Alkaline Phosphatase 80 (38-126) U/L Total Protein 8.2 (6.3-8.2) g/dL Albumin 4.2 (3.5-5.0) g/dL Globulin 4.0 (1.7-4.1) g/dL Albumin/Globulin Ratio 1.1 (1.0-2.8) Serum , Qual (Negative) Salicylates < 1.0 (<20) mg/dL U Opiates 300ng/mL cut (Negative) Ur Oxycodone Screen (Negative) Urine Methadone Screen (Negative) Acetaminophen < 10 (10-30) ug/mL Ur Barbiturates Screen (Negative) U Tricyclic Antidepress (Negative) Ur Phencyclidine Scrn (Negative) Ur Amphetamines Screen (Negative) U Methamphetamines Scrn (Negative) Ur MDMA Scrn (Ecstasy) (Negative) U Benzodiazepines Scrn (Negative) Urine Cocaine Screen (Negative) U Marijuana (THC) Screen (Negative) Ethyl Alcohol < 10 ( - 10) mg/dL SARS-CoV-2 (PCR) (Negative) Influenza A (RT-PCR) (NEGATIVE) Influenza B (RT-PCR) (NEGATIVE) RSV (PCR) (Negative) 08/12/22 08/12/22 08/12/22 Range/Units 14:40 16:20 16:28 WBC (4.5-11.0) X10^3/uL RBC (4.0-5.2) X10^6/uL Hgb (12.0-16.0) g/dL Hct (36-46) % MCV (80-100) fL MCH (26-34) PG MCHC (30-36) % RDW (11.6-14.8) % Plt Count (150-400) X10^3/uL Neut % (Auto) (50-75) % Lymph % (Auto) (25-40) % [place] % (Auto) (3-14) % Eos % (Auto) (2-4) % Baso % (Auto) (0-2) % Neut # (Auto) (7990-4019) /uL Lymph # (Auto) (7844-0304) /uL [place] # (Auto) (0-900) /uL Eos # (Auto) (0-450) /uL Baso # (Auto) (0-100) /uL Sodium (137-145) mmol/L Potassium (3.4-5.1) mmol/L Chloride (98-107) mmol/L Carbon Dioxide (22-32) mmol/L BUN (7-17) mg/dL Creatinine (0.52-1.04) mg/dL Estimated GFR (>60) mL/min BUN/Creatinine Ratio (6-22) Glucose (70-100) mg/dL Lactate (0.7-2.1) mmol/L Calcium (8.4-10.2) mg/dL Total Bilirubin (0.2-1.3) mg/dL AST (14-36) IU/L ALT (<35) IU/L Alkaline Phosphatase (38-126) U/L Total Protein (6.3-8.2) g/dL Albumin (3.5-5.0) g/dL Globulin (1.7-4.1) g/dL Albumin/Globulin Ratio (1.0-2.8) Serum , Qual Negative (Negative) Salicylates (<20) mg/dL U Opiates 300ng/mL cut Negative (Negative) Ur Oxycodone Screen Negative (Negative) Urine Methadone Screen Negative (Negative) Acetaminophen (10-30) ug/mL Ur Barbiturates Screen Negative (Negative) U Tricyclic Antidepress Negative (Negative) Ur Phencyclidine Scrn Negative (Negative) Ur Amphetamines Screen Negative (Negative) U Methamphetamines Scrn Negative (Negative) Ur MDMA Scrn (Ecstasy) Negative (Negative) U Benzodiazepines Scrn Negative (Negative) Urine Cocaine Screen Negative (Negative) U Marijuana (THC) Screen Negative (Negative) Ethyl Alcohol ( - 10) mg/dL SARS-CoV-2 (PCR) Negative (Negative) Influenza A (RT-PCR) (NEGATIVE) Influenza B (RT-PCR) (NEGATIVE) RSV (PCR) (Negative) 08/13/22 Range/Units 00:40 WBC (4.5-11.0) X10^3/uL RBC (4.0-5.2) X10^6/uL Hgb (12.0-16.0) g/dL Hct (36-46) % MCV (80-100) fL MCH (26-34) PG MCHC (30-36) % RDW (11.6-14.8) % Plt Count (150-400) X10^3/uL Neut % (Auto) (50-75) % Lymph % (Auto) (25-40) % [place] % (Auto) (3-14) % Eos % (Auto) (2-4) % Baso % (Auto) (0-2) % Neut # (Auto) (8566-3089) /uL Lymph # (Auto) (7389-3060) /uL [place] # (Auto) (0-900) /uL Eos # (Auto) (0-450) /uL Baso # (Auto) (0-100) /uL Sodium (137-145) mmol/L Potassium (3.4-5.1) mmol/L Chloride (98-107) mmol/L Carbon Dioxide (22-32) mmol/L BUN (7-17) mg/dL Creatinine (0.52-1.04) mg/dL Estimated GFR (>60) mL/min BUN/Creatinine Ratio (6-22) Glucose (70-100) mg/dL Lactate (0.7-2.1) mmol/L Calcium (8.4-10.2) mg/dL Total Bilirubin (0.2-1.3) mg/dL AST (14-36) IU/L ALT (<35) IU/L Alkaline Phosphatase (38-126) U/L Total Protein (6.3-8.2) g/dL Albumin (3.5-5.0) g/dL Globulin (1.7-4.1) g/dL Albumin/Globulin Ratio (1.0-2.8) Serum , Qual (Negative) Salicylates (<20) mg/dL U Opiates 300ng/mL cut (Negative) Ur Oxycodone Screen (Negative) Urine Methadone Screen (Negative) Acetaminophen (10-30) ug/mL Ur Barbiturates Screen (Negative) U Tricyclic Antidepress (Negative) Ur Phencyclidine Scrn (Negative) Ur Amphetamines Screen (Negative) U Methamphetamines Scrn (Negative) Ur MDMA Scrn (Ecstasy) (Negative) U Benzodiazepines Scrn (Negative) Urine Cocaine Screen (Negative) U Marijuana (THC) Screen (Negative) Ethyl Alcohol ( - 10) mg/dL SARS-CoV-2 (PCR) Negative (Negative) Influenza A (RT-PCR) Flu a negative (NEGATIVE) Influenza B (RT-PCR) Flu b negative (NEGATIVE) RSV (PCR) Negative (Negative) Point of Care Testing Glucose POC 190 MDM Narrative Medical decision making narrative: Patient overdosed on opiates was given Narcan in field by EMS. Now awake and shaking. Very remorseful and tearful. She is requesting help and detox. Also thinks that it was intentional. She is had suicidal thoughts. Blood work is overall reassuring. Patient is medically cleared. She is been evaluated by social work waiting for voluntary placement. Signed out to Dr. Win Walden: Received turned over. Reviewed patient's history and physical. Patient is medically cleared. She is remained calm. Patient has been evaluated and accepted at mental health facility. Patient is voluntary. She is stable for transport. Naloxone at Discharge Meets criteria for naloxone at discharge?: Yes Reason patient is not provided naloxone?: Transferring patient Discharge Plan Departure Patient Disposition: Xfer [facility] Clinical Impression: Suicide ideation, Drug overdose Prescriptions: No Action fluconazole [Diflucan] 100 mg tablet 100 mg PO DAILY Qty: 1 0RF Rx Instructions: take after you have finished the Flagyl/metronidazole Referrals: Miscellaneous,Doctor, MD [Primary Care Provider] -
[2022-08-12 14:53] LABS: Add Manual Diff / Slide Review NO; Basophils Absolute Auto 0 /uL (0-100); Basophils Percent Auto 0.2 % (0-2); Eosinophils Absolute Auto 0 /uL (0-450); Eosinophils Percent Auto 0.2 % (2-4); Hematocrit 39.1 % (36-46); Hemoglobin 12.6 g/dL (12.0-16.0); Lymphocytes Absolute Auto 900 /uL (1100-4500); Mean Corpuscular HGB Conc 32.4 % (30-36); Mean Corpuscular Volume 80.2 fL (80-100); Monocytes Absolute Auto 500 /uL (0-900); Monocytes Percent Auto 5.1 % (3-14); Neutrophils Absolute Auto 8100 /uL (1500-7000); Neutrophils Percent Auto 85.5 % (50-75); Platelet Count 294 X10^3/uL (150-400); Red Blood Cell Count 4.87 X10^6/uL (4.0-5.2); Red Cell Distribution Width 14.9 % (11.6-14.8); White Blood Cell Count 9.5 X10^3/uL (4.5-11.0)
[2022-08-12 15:10] LABS: Acetaminophen < 10 ug/mL (10-30); Alanine Aminotransferase 18 IU/L (<35); Albumin 4.2 g/dL (3.5-5.0); Albumin Globulin Ratio 1.1 (1.0-2.8); Alkaline Phosphatase 80 U/L (38-126); Aspartate Aminotransferase 24 IU/L (14-36); BUN Creatinine Ratio 10.9 (6-22); Bilirubin Total 0.3 mg/dL (0.2-1.3); Blood Urea Nitrogen 10 mg/dL (7-17); Calcium 8.7 mg/dL (8.4-10.2); Carbon Dioxide 28 mmol/L (22-32); Chloride 98 mmol/L (98-107); Estimated Glomerular Filt Rate > 60 mL/min (>60); Ethanol (ETOH) < 10 mg/dL; Glucose 206 mg/dL (70-100); HEMOLYSIS < 15 (0-50); Salicylate < 1.0 mg/dL (<20); Sodium 134 mmol/L (137-145); Total Protein 8.2 g/dL (6.3-8.2)
[2022-08-12 15:11] LABS: Lactate (Lactic Acid) 2.1 mmol/L (0.7-2.1); Pregnancy Test Serum,Qual Negative (Negative)
--- NOTE | 2022-08-12 15:45 | PC.NURSE ---
talking with the [employer]OR
--- NOTE | 2022-08-12 16:30 | CM.DANOTE ---
Patient is a 26 yo female who was admitted to [facility] ED today 08/12/22 after intentional overdose with fentanyl. Pt has [employer] and [employer] for insurance. EMR was reviewed. MANAGER FIRE consult placed by ED MD due to pt's suicide attempt. MANAGER FIRE met bedside with pt and see PORSHA moss below: LANDSCAPING AND GROUNDSKEEPING LABORER and manager market development to begin the search for Voluntary Inpt Tx for stabilization and med management as pt not currently safe for least restrictive alternative. CARLTON Jon, [facility] Discharge Planning/Care Management ED Psychiatric Symptoms Assessment Start: 08/12/22 14:41 Freq: Status: Active Protocol: Document 08/12/22 14:30 RLS (Rec: 08/12/22 14:48 RLS [id number]) Psychiatric Symptoms Assessment Symptoms/Complaint Suicidal Ideation Onset today History Of Same Yes Context Not Taking Psychiatric Medications Associated Psychiatric Symptoms Suicidal Ideation Associated Symptoms Denies Other Symptoms If Self Harm Admits Thoughts of Self Harm, Has Acted on Plan,Has Plans, Intentional Overdose Details of Plan states she told her brother that she was going to kill herself a few days ago. states that she smoked 4 blue pills today. fentanyl and some other med that she is not sure of. Level of Observation Continuous Precautions Safety precautions initiated Room placement non-ligature mitigated room Level of Consciousness Alert,Appropriate,Awake Patient Orientation Name,Age Patient Behavior/Mood Cooperative Ability to Follow Directions Good Patient Cognition Impaired No Affect Description Calm Patient Appearance Well Groomed,Unkempt Hallucination Type None Delusion Description Not Present Thought Process: Normal Depressive Symptoms Difficulty Concentrating, Feelings of Worthlessness, Hopelessness,Recurrent Thoughts of or Suicide Feelings of Hopelessness Yes Suicidal Ideation Frequent Suicide Plan Organized,Specific,Feasible, High Lethality Homicidal Ideation None Nausea/Vomiting None MANAGER FIRE - Ribbon Cleaner Assessment Start: 08/12/22 16:14 Freq: Status: Active Protocol: Document 08/12/22 16:15 BF (Rec: 08/12/22 16:30 BF [id number]) MANAGER FIRE/Ribbon Cleaner Assessment Start date 08/12/22 Visit Start Time 15:30 End date 08/12/22 Visit End Time 16:10 Total time Care Management spent on 60 min patient visit-in minutes Presenting Problem Pt admitted to the ED via EMS due to overdose/unresponsive and intentional suicide attempt, given narcan 6 times by EMS Precipitating Event(s) Pt has significant grief and loss hx with recent loss of best friend in May and increased drug use to cope. Patient Strengths Has some self awareness and insight and candid about her experiences and use. Current Behavioral Health Provider(s) none Include Facility, Provider, Ph. # Psych. Hx Mental Health and Chemical Pt has a hx of mental health Dependency counseling last year but no current established provider and no hx of [facility] tx Psychiatric Hospitalizations (date(s)/ none location) Psychosocial information & Support Pt lives with her mom and they Systems moved this year from [place] area after pt's father and other family members recently and pt and mother have a strained relationship stemming from substance use and choices School/Work Denies Presenting Problem Pt states she started using cocain in December of this year 2021 from a friend in [place] and then a while later she tried meth with a boy she liked hoping it would make their relationship stronger. Precipitating Event(s) Pt states she began using cocain to deal with her sad grief feelings and then tried meth and then fentanyl. Current Behavioral Health Provider(s) none Include Facility, Provider, Ph. # Rehab Facilities? ((Date(s), Location(s) no hx [facility] tx ) History of Withdrawal? Seizures? denies Longest Period of Sobriety Has used almost daily since January 2022 this year Legal Matters - Outstanding Issues Denies Orientation (Person/Place/Time) Pt alert and oriented x4 Stated Mood Pt tearful and sad during assessment and clearly still has not worked on grief from the deaths of those close to her. Affect (Congruent with Mood?) Somewhat flat affect and tearful during discussion and honest in her answers. Thought Content - Specify/Describe Pt denies any visual or Obsessions, Delusions, Hallucinations auditory disturbances and does not appear to be reacting to any external stimuli. Pt denies any obsessions Thought Processes (Klakfrk-Yruswtgi-Fwyk Detailed, logical, some Pvtosfeb-Ygixfppm-Oaphyyyeeh- ambivilance but admits to Jvajqaonwzabhc-Prnfgun-Rqooaxmythvm- feeling that she needs help Thought Blocking) and cannot manage on her own anymore Speech (Uwidnj-Sqjm-Udjtztj-Rapid-Soft- Normal Loud-Pressured) Motor (Cheuig-Avyltfdmt-Jdsq-Other) Normal to slow Insight (Sgqs-Oxqr-Obah/Limited) Insight is Fair and aware that she cannot manage her grief or stop her drug use on her own at this time without professional help Judgement (Zcau-Faaq-Vxkq/Limited) Fair Impulse Control (Adequate-Impaired) Impaired as evidenced by intentional overdose Memory (Xhfgkaoal-Obrvkj-Mmmvys, Immediate Impaired-Intact) Concentration (Intact-Impaired) Intact Attention (Intact-Impaired) Intact Behavior (Appropriate-Inappropriate) Appropriate, willing to participate in discussion and voluntary Suicidal Ideation (Plan) Yes Intervention MANAGER FIRE met bedside with pt and mother in ED room 6 and pt able to have most recall from the events leading up to her decision to intentionally overdose on Fentanyl as she typically only takes one pill at a time but intentionally took 4 after feeling hopeless and alone in her grief and loss and recent of her closest friend. Pt lives with her mom and has had a strained relationship with her since they moved here and pt' s drug use has increased as a way for pt to self medicate and cope. Pt only started drugs this year in the summer but has progressed in her use. Pt denies dealing with her grief and denies any recent counseling and has not sought [facility] tx yet. SW discussed possible options for discharge from the hospital and discussed Inpt [facility] tx and pt acknowledges that she is risky for d/c directly to the community at this time as she is still feeling very sad, tearful, suicidal ideation and has access to more drugs or options for suicide attempt. Pt mentioned to her brother a couple days ago that she felt suicidal and then intentionally overdosed today with her mother home who fortunately found pt and called EMS. Pt and mother feel that Inpt tx needed at this time due to risk factors and pt voluntarily willing to participate. RA Plan MANAGER FIRE updated manager market development and MD and all in agreement that pt too risky for d/c back to the community without any current established MH/[facility] providers available and would benefit from Inpt Tx for stabilization and med management as pt with active depression and grief without any current prescribed medications.
[2022-08-12 16:34] LABS: UR Morphine/Opiate cutoff 300 Negative (Negative); Ur Creatinine Normal (Normal); Ur Specific Gravity Normal (Normal); Urine Amphetamines Negative (Negative); Urine Barbiturates Negative (Negative); Urine Benzodiazepines Negative (Negative); Urine Cocaine Negative (Negative); Urine MDMA Negative (Negative); Urine Methadone Negative (Negative); Urine Methamphetamines Negative (Negative); Urine Oxycodone Negative (Negative); Urine Phencyclidine Negative (Negative); Urine Tetrahydrocannabinol Negative (Negative); Urine Tricyclic Antidepressant Negative (Negative); Urine pH Normal (Normal)
[2022-08-12 16:46] LABS: Reflexed Lactate in 2 Hours Y
--- NOTE | 2022-08-12 16:47 | PC.NURSE ---
Mother took a square pill box that has 4 blue pills with the letter M. patient states they are more fentanyl pills. mom reports she is going to take a picture of them and throw them away. I offered to dispose them in our pharmaceutic bin. she declined. Dr. Meek aware.
[2022-08-12 16:54] LABS: COVID19 -Nasal RAPID Negative (Negative)
--- NOTE | 2022-08-12 19:47 | PC.NURSE ---
WOOD DRILL OPERATOR note: placed belongings in locked cabinet with labels.
--- NOTE | 2022-08-12 22:26 | PC.NURSE ---
Addendum entered by Antonietta Melvin CNA 08/12/22 22:31: Jose: spoke to Kayli. She said they have beds, but to look if I can find other placement before they can chat with us. [facility]: Not taking patients currently. But they can pre-screen patient. Sent paperwork over. They said they may have a couple d/cs in the am Isai August: left message for Stephanie. Called their charge nurse at [phone] --- They aren't taking patients tonight. Is[facility] Ugalde: was told to call [phone] . That number didn't work it was a clinic[facility] [employer] [facility]. [facility]: took information, sent over her ER report, FUNERAL ATTENDANT report, and labs Updated nurse Original Note: GEOPHYSICAL COMPUTER note: Attempting to find bed for patient. Used social work Twila's note as a compass. [facility]: have female beds; sent labs, transfer report, FUNERAL ATTENDANT note, doctor's report, and facesheet. Will call us back. [facility]: patient has [employer] insurance and needs authorization for placement. I attempted to get that by calling their [phone] number, but I couldn't get through their phone system. They have one open bed, but need to ask questions once authorization is cleared.
[2022-08-13] VITALS (48 sets, daily range): BP systolic 95–125; BP diastolic 55–76; PULSE 80–114; RESP 15; TEMP 36.5–36.8; O2SAT 85–100
--- NOTE | 2022-08-13 | PC.NURSE ---
resp. even and steady. pt. eyes are closed, chest rising and falling
--- NOTE | 2022-08-13 00:16 | PC.NURSE ---
pt. eyes closed, resp. even, chest rising and falling
--- NOTE | 2022-08-13 00:32 | PC.NURSE ---
pt. eyes closed, resp. even, chest rising and falling
--- NOTE | 2022-08-13 00:47 | PC.NURSE ---
pt. eyes closed. resp. are even, chest is rising and falling.
--- NOTE | 2022-08-13 01:00 | PC.NURSE ---
pt. eyes are closed. resp. even, chest is rising and falling
--- NOTE | 2022-08-13 01:15 | PC.NURSE ---
pt. eyes are closed. resp are even. chest is rising and falling. adj. pulse ox
[2022-08-13 01:26] LABS: Influenza A - CEPHEID Flu A NEGATIVE (NEGATIVE); Influenza B - CEPHEID Flu B NEGATIVE (NEGATIVE); Respiratory Syncytial Virus Negative (Negative)
[2022-08-13 01:27] LABS: COVID-19 CEPHEID 4-PLEX PCR Negative (Negative)
--- NOTE | 2022-08-13 01:45 | PC.NURSE ---
pt. eyes are closed, resp. are even. chest is rising and falling
--- NOTE | 2022-08-13 02:00 | PC.NURSE ---
pt. eyes are closed, resp. are even. chest is rising and falling
--- NOTE | 2022-08-13 02:30 | PC.NURSE ---
pt. eyes are closed. resp. are even, chest is rising and falling.
--- NOTE | 2022-08-13 02:45 | PC.NURSE ---
pt. eyes are closed. chest is rising and falling, pt. mouth is open breathing. resp. are even
--- NOTE | 2022-08-13 03:02 | PC.NURSE ---
pt. is lying down, on the phone with a facility on interview
--- NOTE | 2022-08-13 03:18 | PC.NURSE ---
assisted pt. to ambulate to the bathroom. pt. was able to ambulate solo.
--- NOTE | 2022-08-13 03:34 | PC.NURSE ---
pt. sitting up in bed, eyes closed, chest is rising and falling
--- NOTE | 2022-08-13 03:48 | PC.NURSE ---
CHILDHOOD TEACHER note: [facility] accepted patient, needed to interview patient, gave her a phone, and she interviewed w/ [facility]. They accepted. They asked for us to arrange transport to either before 0500 or after 0730. Called [facility], originally got a 1510 order picker/assembler time. Called [facility]. Got a 10am order picker/assembler. Took that time. Called [facility] and cancelled (thanked them profusely.). Gave Mayda medical social worker, a call and let her know the time for order picker/assembler here. When patient leaves ER, RN is to call [phone] to give report. Alerted nurses and doctor of the plan. Will fill out paperwork and create packet for transport. Told patient of plan.
--- NOTE | 2022-08-13 03:49 | PC.NURSE ---
pt. sitting up, eyes closed, resp. even, chest is rising falling. pt. woke to vitals machine.
--- NOTE | 2022-08-13 04:01 | PC.NURSE ---
pt. asked for a blanket, gave two
--- NOTE | 2022-08-13 04:30 | PC.NURSE ---
pt. lying down, head raised, eyes closed. resp. are even, chest is falling and rising.
--- NOTE | 2022-08-13 04:45 | PC.NURSE ---
pt. lying down, eyes closed. resp. are even. chest is rising and falling
--- NOTE | 2022-08-13 05:00 | PC.NURSE ---
pt. eyes closed, chest is rising and falling.resp. even
--- NOTE | 2022-08-13 05:30 | PC.NURSE ---
pt. lying down w/eyes closed. resp. are even, chest is rising and falling
--- NOTE | 2022-08-13 05:45 | PC.NURSE ---
pt. lying down, eyes closed. resp. normal, chest is falling and rising
--- NOTE | 2022-08-13 07:00 | PC.NURSE ---
pt. eyes are closed. resp. are even, chest is rising and falling
--- NOTE | 2022-08-13 07:15 | PC.NURSE ---
pt. eyes closed, chest rising and falling, resp. are even
--- NOTE | 2022-08-13 08:00 | PC.NURSE ---
pt. is eating breakfast.
--- NOTE | 2022-08-13 08:32 | PC.NURSE ---
pt. eyes are closed, chest is falling and rising, resp. are even
--- NOTE | 2022-08-13 09:15 | PC.NURSE ---
pt. eyes closed, chest rising and falling, resp. are even
--- NOTE | 2022-08-13 09:30 | PC.NURSE ---
pt. eyes closed, chest is rising and falling, pt. is snoring, resp. are even
--- NOTE | 2022-08-13 11:03 | PC.NURSE ---
pt. requested to use bathroom and successfully ambulated to and from. pt. asked for juice, was given cranberry and orange juice in paper cups.
--- NOTE | 2022-08-21 12:15 | PC.NURSE ---
Spoke with Junior ([phone]) w/ [facility]. Information exchanged regarding + STD.
== END 2022-08-13 15:56 ==
PROVIDERS: Emergency Medicine; Emergency Provider Emergency Medicine
DX: R45.851 Suicidal ideations (principal); T50.7X1A Poisoning by analeptics and opioid receptor antagonists, accidental (unintentional), initial encounter; Z20.822 Contact with and (suspected) exposure to COVID-19
CPT/HCPCS: 0241U; 80053; 80305; 80320; 80329; 83605; 84703; 85025; 87635; 99285; C9803; G0480

== ENCOUNTER 2022-10-04 10:59 | Emergency (ER) | payer OTHER, MEDICAID, SELFPAY ==
[2022-10-04 11:16] VITALS: BP 137/63; PULSE 84; RESP 16; TEMP 35.9; O2SAT 100; BMI 34.9
[2022-10-04 15:30] VITALS: BP 111/60; PULSE 102; RESP 16; O2SAT 100
--- NOTE | 2022-10-04 16:43 | CM.SWNOTE ---
Addendum entered by Ivana Boyer 10/04/22 17:08: Per ED provider, Radha Hassan PA-C, patient is requesting detox. INTERNATIONAL SALES MANAGER re-enters room and discusses that since last substance use was 2 days or more ago detox will likely not accept patient ([facility] detox is full, [facility] and [facility] likely full as well, [facility] and [facility] full). INTERNATIONAL SALES MANAGER provides patient with list of [facility] resources and discusses option for MAT and list of detox facilities for patient to call at any time. ED provider to provide rx upon d/c. Ivana Boyer, [facility] Original Note: INTERNATIONAL SALES MANAGER Assessment Note Patient is 26 y/o female who presents to ED due to concerns for substance use withdrawals. Patient reports she used Methamphetamine laced with Fentanyl. Patient endorses I did drugs, I feel sucky. Patient has no current PCP, she was scheduled for PCP appt to seek Dr. Partha Nicole on 08/25/22 but patient states she was unable to go/forgot and missed the appt. Patient has [facility] Medicaid insurance. INTERNATIONAL SALES MANAGER enters room to meet with patient. Patient presents as A/Ox4, euthymic, full range, congruent with mood. Patient endorses she presented to ED because she did not feel well after substance use, patient endorses she currently feels dizzy. Patient endorses use used Meth that was laced with fentanyl. Patient endorses she resides in an apartment in [facility] [facility] [address], she states she feels safe there, patient endorses she is employed at [employer] in the [employer]. Patient denies current SI, HI or self harm. Patient endorses she was having thoughts of SI last night, denies plans. Patient endorses she used meth last night to stop her thoughts of SI. Patient endorses she has access to crisis numbers, patient endorses she has local supports such as her mother in [place] [place] [address] but she feels too ashamed to reach out to them. Patient has hx of voluntary inpatient stay at [facility] in July 2022. Patient endorses interest in outpatient resources. INTERNATIONAL SALES MANAGER to provide patient with list of local [facility] resources. Patient does not endorses interest in detox or inpatient tx at this time. It is the opinion of this INTERNATIONAL SALES MANAGER that patient is safe to d/c upon medical clearance. Plan: ED provider to assess patient further for medical clearance. INTERNATIONAL SALES MANAGER to provide patient with [facility] resources. Ivana Boyer, OPTICAL LABORATORY TECHNICIAN
--- NOTE | 2022-10-04 16:45 | ED_ITS ---
HPI - Overdose <Radha Hassan PA-C - Last Filed: 10/04/22 17:21> General Chief Complaint: Toxicology Problem Stated Complaint: palpitations,light headed, throat feels swollen Time Seen by Provider: 10/04/22 15:44 History of Present Illness HPI Narrative: 26-year-old female history of substance abuse presents with concern for recent substance abuse and wanting a prescription for Narcan. Patient states that she uses fentanyl and meth, she states that her uses occasional. And that 2 nights ago she was feeling shaky and dizzy and like she was breathing slowly so she used her own Narcan on herself. She was not with anyone else at the time. She states she is been feeling a little off and a little dizzy for the last 2 nights since that time. She states she has used previously and her current symptoms are consistent with previous symptoms after using meth and fentanyl. She has not been sick with anything else recently except she is had a cough in the past few weeks which has resolved and she feels like she has to clear her throat sometimes. She states she is hoping to stop using these entirely ultimately. Today she is hoping for Narcan pack to take home and something to help with withdrawal symptoms in general. She denies nausea, vomiting, diarrhea, tremulousness or any other symptoms. Related Data Previous Rx's Medication Instructions Recorded fluconazole 100 mg tablet 100 mg PO DAILY #1 tab 05/01/22 (Diflucan) Allergies Allergy/AdvReac Type Severity Reaction Status Date / Time No Known Drug Allergies Allergy Verified 07/10/22 07:34 Review of Systems <Radha Hassan PA-C - Last Filed: 10/04/22 17:21> Review of Systems Narrative: Unremarkable except as noted in the HPI Patient History <Radha Hassan PA-C - Last Filed: 10/04/22 17:21> Medical History Cocaine use Social History Smoking Status: Current every day smoker Smoking Status: Current every day smoker tobacco type: cigarettes and vaping alcohol intake frequency: holidays/special occasions only Substance Use Type: marijuana, crack/cocaine, heroin, opiates and methamphetamine Exam <Radha Hassan PA-C - Last Filed: 10/04/22 17:21> Narrative Exam Narrative: GENERAL: 26 year old patient appears stated age. Well-developed patient, in mild distress. HEAD: Atraumatic. Normocephalic. EYES: Pupils equal round and reactive. Extraocular motions intact. No scleral icterus. No injection or drainage. ENT: Nose without bleeding, purulent drainage. Airway patent. Bilateral ear canals with cerumen, unable to visualize TM. NECK: Trachea midline. Non tender CARDIOVASCULAR: Regular rate and rhythm without murmurs, gallops, or rubs. RESPIRATORY: Clear to auscultation. Breath sounds equal bilaterally. No wheezes, rales, or rhonchi. GASTROINTESTINAL: Abdomen soft, non-tender, nondistended. EXTREMITIES: No edema or joint tenderness. BACK: Nontender without deformity or crepitance. No flank tenderness. NEURO: Cranial nerves 2-12 intact, coordination intact. AOx3. SKIN: No rash or erythema of visible areas Initial Vital Signs Initial Vital Signs: Vital Signs Temperature 96.7 F L 10/04/22 11:16 Pulse Rate 84 10/04/22 11:16 Respiratory Rate 16 10/04/22 11:16 Blood Pressure 137/63 10/04/22 11:16 Pulse Oximetry 100 10/04/22 11:16 Oxygen Delivery Method 10/04/22 11:16 <Irene Alston DO - Last Filed: 10/04/22 18:43> Initial Vital Signs Initial Vital Signs: Vital Signs Temperature 96.7 F L 10/04/22 11:16 Pulse Rate 84 10/04/22 11:16 Respiratory Rate 16 10/04/22 11:16 Blood Pressure 137/63 10/04/22 11:16 Pulse Oximetry 100 10/04/22 11:16 Oxygen Delivery Method 10/04/22 11:16 Course <Radha Hassan PA-C - Last Filed: 10/04/22 17:21> Orders Ordered: ED Orders 10/04/22 11:22 Consult to CNC MILL SET UP OPERATOR - Maintenance Job Titles Stat Discontinued Medications Naloxone HCl (Naloxone 4 Mg Nasal [place]) 4 mg MISC SEEINSTR ONE Stop: 10/04/22 16:12 Last Admin: 10/04/22 17:25 Dose: 4 mg Documented By: KM Consultations Consultation #1: Social Work was consulted and spoke with this patient regarding outpatient resources and provided her with these. Time: 16:45 Vital Signs Vital signs: Vital Signs - 8 hr 10/04/22 11:16 10/04/22 15:30 10/04/22 17:03 Temperature 96.7 F L Pulse Rate 84 102 H 77 Respiratory Rate 16 16 18 Blood Pressure 137/63 111/60 110/58 L Pulse Oximetry 100 100 99 Oxygen Delivery Method Room Air Room Air Room Air <Irene Alston DO - Last Filed: 10/04/22 18:43> Orders Ordered: ED Orders 10/04/22 11:22 Consult to CNC MILL SET UP OPERATOR - Maintenance Job Titles Stat Discontinued Medications Naloxone HCl (Naloxone 4 Mg Nasal [place]) 4 mg MISC SEEINSTR ONE Stop: 10/04/22 16:12 Last Admin: 10/04/22 17:25 Dose: 4 mg Documented By: GLEN Vital Signs Vital signs: Vital Signs - 8 hr 10/04/22 11:16 10/04/22 15:30 10/04/22 17:03 Temperature 96.7 F L Pulse Rate 84 102 H 77 Respiratory Rate 16 16 18 Blood Pressure 137/63 111/60 110/58 L Pulse Oximetry 100 100 99 Oxygen Delivery Method Room Air Room Air Room Air MDM - Overdose <Radha Hassan PA-C - Last Filed: 10/04/22 17:21> Differential Diagnosis Differential diagnosis: Likely other (meth and opioid use) Treatment and disposition Social Determinants of Health that impact treatment or disposition: Patient is an reportedly occasional user of fentanyl and methamphetamines. She is currently housed and has her own apartment Shared decision making:: Shared decision-making was used and discussing options for this patient plan of care and plan for outpatient follow-up [facility] Narrative Medical decision making narrative: This is a well-appearing 26-year-old female who presents with concern for wanting naloxone as she used hers 2 nights ago, also hoping for something to help with withdrawal symptoms. Patient is irregular though reportedly intermittent and occasional user of methamphetamine and opioids, fentanyl. Patient also meet with social work and is provided with resources for outpatient detox. Patient endorses a desire to stop using. Given it has been greater than 48 hours since her last use she does not meet criteria for direct admission through the ED per social work. Her exam is unremarkable today, she does endorse some persistent dizziness and shakiness, generally feeling off. But there are no findings on exam consistent with this. Patient is provided with a prescription for naloxone at discharge. Per interview with social work she denied any thoughts or intent of self-harm or harming others. Resources for outpatient follow-up. Return precautions provided, follow-up plan discussed, all questions answered. Naloxone at Discharge Meets criteria for naloxone at discharge?: Yes Discharge Plan Departure Patient Disposition: Home Clinical Impression: Substance abuse, Methamphetamine abuse, Opioid abuse Instructions: DI for Substance Use Disorder Activity Restrictions/Additional Instructions: Thank you for letting us be part of your care today in the emergency department. We did have you meet with social work today and give you some resources for potentially seeking detox as an outpatient. We also provided you with a new naloxone/Narcan dose that you can have with you. Your exam today looked good, your vitals were also okay today in the emergency department. We did see that you had been referred to primary care but unfortunately did not make your appointment recently, I would encourage you to pursue primary care as it will be helpful for you to have a doctor that you can see on a regular basis. I would also encourage you to pursue accessing the resources as an outpatient that were provided to you today by social work. There is no evidence of an emergent or life threatening illness at this time, but follow up with your doctor in 1-2 days is recommended nonetheless to continue to rule out serious underlying causes of your symptoms. Please call the office for an appointment. Please return to the Emergency Department for any worsening or persistent symptoms. Please take medications as directed. Prescriptions: No Action fluconazole [Diflucan] 100 mg tablet 100 mg PO DAILY Qty: 1 0RF Rx Instructions: take after you have finished the Flagyl/metronidazole Referrals: Miscellaneous,Doctor, [Primary Care Provider] - Stand Alone Forms: Patient Portal/API <Irene Alston DO - Last Filed: 10/04/22 18:43> [facility] ED Attending Daryl Attestation: I was immediately available in the department for consultation. Documentation has been reviewed. Case was discussed agree with plan.
[2022-10-04 17:03] VITALS: BP 110/58; PULSE 77; RESP 18; O2SAT 99
[2022-10-04] MEDS: NALOXONE 4 MG NASAL SPRAY MISC (17:25)
== END 2022-10-04 17:39 | disposition home or self-care (01) ==
PROVIDERS: Emergency Provider Student in an Organized Health Care Education/Training Program
DX: F19.10 Other psychoactive substance abuse, uncomplicated (principal); F15.10 Other stimulant abuse, uncomplicated; F11.10 Opioid abuse, uncomplicated
CPT/HCPCS: 99282; 99283; A9270

== ENCOUNTER 2022-10-05 16:42 | Emergency (ER) | payer OTHER, MEDICAID, SELFPAY ==
[2022-10-05 16:46] VITALS: BP 118/77; PULSE 97; RESP 16; TEMP 36.8; O2SAT 97; BMI 35.6
--- NOTE | 2022-10-05 17:24 | CM.SWNOTE ---
Addendum entered by Paul Nixon 10/05/22 20:00: Pt remains screening with [facility]. She has been written for two RX by that mother has picked up from the pharmacy and pt could arrive to detox with RX in hand. Mother can transport pt to detox. As this contract writer is going off shift information provided to PA, RN, and COLTON. If pt is accepted to detox mother can transport. mom and pt both aware that if detox placement is not successful pt will be discharged home and recommendation is [facility] open beds tomorrow. Paul Nixon, EMERGENCY SPECIALIST Original Note: Social Work Note 10/05/22 Patient is a 26yo female who is brought in by mom requesting detox services. Pt was seen in the ED last night by KANE Reddy and declined detox or MH services and was discharged home per her request. KANE met with pt at bedside following medical clearance. pt confirmed her name and date of . Pt is A&Ox4. KANE spoke with pt with mom present with patients permission. Pt identifies she is in the ED today because i used drugs two days ago. truing to decide if i should go to rehab or what. pt is living on her own after recently moving out of [facility]. pt does identify some concern if i go to treatment i will lose my job and my apartment. she notes she is scheduled to work tomorrow (Wednesday), then have the following two days off (Wednesday/) after that. Pt reports hx of depression. Pt notes some suicidal thoughts when i use. she notes last time was two days ago. she denies active SI, intent, or plan at this time. she denies any concerns for her mood or bx at this time. Pt states maybe when asked if she has experienced AH when intoxicated. she is not able to provide any further details. Pt notes of her drug use she has been using Fentanyl 3-4x a week for the past three months. She notes also using meth maybe a coupe times a week the past three months. she denies alcohol or other drug use. Pt notes she moved to this area from [place] with mom in march i shouldn't have come. they were living in [place] recently but had lived in [place] in the past and mom had always planned to retire here. Pt lives in an apartment and works at [employer]. KANE spoke with mom privately briefly with pt permission. mom notes pt has been using drugs the past few months with the people shes hanging out with. Mom notes she has always been a strong support for pt. she has noted marked change in pt bx since uding drugs. mom notes that last night she called the pt and seh was talking about needing help moving her stuff wtih a cart and just talking crazy. so today i told her seh had to come and get some help. KANE spoke with [facility] who confirm they have beds and agree to screen pt for possible admit. [facility] are full tonight, may have beds tomorrow. At time of meeting pt denies all active Si, intnet, or plan. No HI or AVH. Pt does not appear to be responding to internal stimuli. there is no evidence pt mood or bx are impacting her ability to meet her basic needs of health and safety. pt does not meet criteria for D[facility] referral. denies concerns for her safety at home. Mom is a strong advocate. KANE spoke with staff at [facility] who request UTOX, UPreg, Covid test, and provider note stating pt is medically clear. Plan: pt referred to [facility]. Under review with that facility pending labwork. Paul Nixon, EMERGENCY SPECIALIST, DATA TECHNICIAN
[2022-10-05 17:44] LABS: Add Manual Diff / Slide Review NO; Basophils Absolute Auto 0 /uL (0-100); Basophils Percent Auto 0.7 % (0-2); Eosinophils Absolute Auto 0 /uL (0-450); Eosinophils Percent Auto 0.4 % (2-4); Hematocrit 37.8 % (36-46); Hemoglobin 12.6 g/dL (12.0-16.0); Lymphocytes Absolute Auto 1900 /uL (1100-4500); Mean Corpuscular HGB Conc 33.4 % (30-36); Mean Corpuscular Hemoglobin 26.9 PG (26-34); Mean Corpuscular Volume 80.7 fL (80-100); Monocytes Absolute Auto 500 /uL (0-900); Monocytes Percent Auto 7.9 % (3-14); Neutrophils Absolute Auto 3900 /uL (1500-7000); Platelet Count 315 X10^3/uL (150-400); Red Blood Cell Count 4.68 X10^6/uL (4.0-5.2); Red Cell Distribution Width 13.6 % (11.6-14.8); White Blood Cell Count 6.4 X10^3/uL (4.5-11.0)
[2022-10-05 18:02] LABS: Acetaminophen < 10 ug/mL (10-30); Alanine Aminotransferase 35 IU/L (<35); Albumin 4.5 g/dL (3.5-5.0); Albumin Globulin Ratio 1.1 (1.0-2.8); Alkaline Phosphatase 63 U/L (38-126); Aspartate Aminotransferase 46 IU/L (14-36); BUN Creatinine Ratio 9.4 (6-22); Bilirubin Total 0.5 mg/dL (0.2-1.3); Blood Urea Nitrogen 9 mg/dL (7-17); Calcium 9.7 mg/dL (8.4-10.2); Carbon Dioxide 34 mmol/L (22-32); Chloride 96 mmol/L (98-107); Estimated Glomerular Filt Rate > 60 mL/min (>60); Ethanol (ETOH) < 10 mg/dL; Glucose 88 mg/dL (70-100); HEMOLYSIS < 15 (0-50); Potassium 3.8 mmol/L (3.4-5.1); Salicylate < 1.0 mg/dL (<20); Sodium 140 mmol/L (137-145); Total Protein 8.5 g/dL (6.3-8.2)
[2022-10-05 18:05] LABS: Appearance Urine UA CLEAR; Bilirubin Urine UA NEGATIVE (NEGATIVE); Color Urine UA YELLOW; Glucose Urine UA NEGATIVE (Negative); Ketones Urine UA NEGATIVE (NEGATIVE); Leukocyte Esterase Urine UA 2+ (NEGATIVE); Nitrite Urine UA NEGATIVE (Negative); Occult Blood Urine UA NEGATIVE (Negative); Protein Urine UA NEGATIVE (Negative); Specific Gravity Urine UA 1.025 (1.000-1.035)
[2022-10-05 18:06] LABS: UR Morphine/Opiate cutoff 300 Negative (Negative); Ur Creatinine Normal (Normal); Ur Specific Gravity Normal (Normal); Urine Amphetamines Positive (Negative); Urine Barbiturates Negative (Negative); Urine Benzodiazepines Negative (Negative); Urine Cocaine Negative (Negative); Urine MDMA Negative (Negative); Urine Methadone Negative (Negative); Urine Methamphetamines Positive (Negative); Urine Oxycodone Negative (Negative); Urine Phencyclidine Negative (Negative); Urine Tetrahydrocannabinol Negative (Negative); Urine Tricyclic Antidepressant Negative (Negative); Urine pH Normal (Normal); pH Urine UA 5.5 (4.5-8.0)
[2022-10-05 18:06] LABS: COVID19 -Nasal RAPID Negative (Negative)
[2022-10-05 18:19] LABS: Pregnancy Test Urine Negative (Negative)
[2022-10-05 18:32] LABS: TSH w/ Reflex to FT4 0.16 uIU/mL (0.47-4.68)
[2022-10-05 18:39] LABS: Bacteria Urine Moderate (10-30); RBC Urine 0-1/HPF (0-5/HPF); Squamous Epithelial Cell Urine 5-10 /HPF (0-5/HPF); Trichomonas Urine 5-10/HPF (None Seen); WBC Urine 10-30/HPF (0-5/HPF)
[2022-10-05 18:40] LABS: Culture Indicated Urine Specimen Cultured
--- NOTE | 2022-10-05 18:58 | ED_ITS ---
HPI - Overdose <Chuyita Scott PA-C - Last Filed: 10/05/22 20:36> General Chief Complaint: Toxicology Problem Stated Complaint: OVERDOSED 7 WEEKS AGO/ACTING WEIRD Time Seen by Provider: 10/05/22 17:02 History of Present Illness HPI Narrative: 26-year-old female with a history of methamphetamine and opioid abuse presents to the ED accompanied by her mother, seeking inpatient detox for the drug use. Patient was seen in the ED yesterday for the same complaint, however she did not want inpatient detox and was seeking outpatient resources that [facility] provided for her yesterday. Today, patient returns after mom noticed that she exhibited tangential speech, patient also endorses feeling lightheaded and nauseous earlier today. Patient states that she might have taken an overdose yesterday, and did take the Narcan that was provided for her in the ED yesterday. Patient states that she took the Narcan since she felt like she was dizzy and breathing slowly. In the ED, patient appears comfortable and is answering questions appropriately. Patient denies fever, chills, chest pain, shortness of breath, abdominal pain, vomiting, dysuria, syncope. Patient endorses intermittent suicidal ideation, states that she wishes to just overdose and . Patient denies any homicidal ideation. Patient states that she sometimes hears voices when she is at work. Patient states the voice called her name, does not tell her to do anything. Related Data Previous Rx's Medication Instructions Recorded metronidazole 500 mg tablet 500 mg PO Q12H 7 days #14 tabs 10/05/22 nitrofurantoin 100 mg PO Q12H 5 days #10 caps 10/05/22 monohydrate/macrocrystals 100 mg capsule (Macrobid) Allergies Allergy/AdvReac Type Severity Reaction Status Date / Time No Known Drug Allergies Allergy Verified 07/10/22 07:34 Review of Systems <Chuyita Scott PA-C - Last Filed: 10/05/22 20:36> Review of Systems ROS Unobtainable: All systems reviewed & are unremarkable except as noted in HPI and below Constitutional Constitutional: Denies chills, Denies fatigue, Denies fever(s), Denies frequent falls, Denies lethargy and Denies weakness Eyes Eyes: Denies change in vision, Denies eye discharge, Denies irritation and Denies loss of vision ENT Ears, Nose, Mouth, and Throat: Denies change in voice, Reports dizziness, Denies neck pain, Denies sore throat and Denies throat swelling Cardiovascular Cardiovascular: Denies chest pain, Denies irregular heart rhythm, Denies lightheadedness, Denies palpitations, Denies dyspnea, Denies dyspnea on exertion and Denies orthopnea Respiratory Respiratory: Denies cough, Denies dyspnea, Denies dyspnea on exertion and Denies wheezing Gastrointestinal Gastrointestinal: Denies abdominal pain, Denies change in bowel habits, Denies diarrhea, Reports nausea and Denies vomiting Genitourinary Genitourinary: Denies hematuria, Denies flank pain, Denies urinary incontinence and Denies urinary urgency Musculoskeletal Musculoskeletal: Denies back pain, Denies muscle weakness, Denies neck pain, Denies numbness and Denies tingling Integumentary/Breasts Skin/Breast: Denies pruritus, Denies erythema, Denies rash and Denies wounds Neurologic Neurologic: Denies behavioral changes, Denies confusion, Reports dizziness, Denies frequent falls, Denies loss of vision, Denies numbness, Denies tingling and Denies weakness Psychiatric Psychiatric: Denies anxiety, Denies behavioral changes, Denies confusion, Denies depression, Reports auditory hallucinations, Denies homicidal ideation and Reports suicidal ideation Endocrine Endocrine: Denies fatigue, Denies flushing and Denies palpitations Hematologic/Lymphatic Hematologic/Lymphatic: Denies easy bruising Allergic/Immunologic Allergic/Immunologic: Denies urticaria, Denies throat swelling and Denies wheezing Patient History <Chuyita Scott PA-C - Last Filed: 10/05/22 20:36> Medical History Cocaine use Social History Smoking Status: Current every day smoker Smoking Status: Current every day smoker tobacco type: cigarettes and vaping alcohol intake frequency: holidays/special occasions only Substance Use Type: marijuana, crack/cocaine, heroin, opiates and methamphetamine Exam <Chuyita Scott PA-C - Last Filed: 10/05/22 20:36> Narrative Exam Narrative: Const General:?cooperative, healthy appearing and comfortable; patient does appear a little tired/somnolent, but very arousable HENMT Head:?normal to inspection Ears:?hearing grossly normal bilaterally Nose:?external nose normal Face and sinus:?normal facial exam and sinuses nontender Mouth:?oral mucosae normal Throat:?posterior oropharynx normal Eyes General:?appearance normal, both eyes and all related structures Neck Neck:?normal visual inspection and no lymphadenopathy noted Resp Effort & Inspection:?normal respiratory effort Auscultation:?clear to auscultation bilaterally Cardio Rate:?regular rate Rhythm:?regular rhythm Neuro General:?patient alert, patient awake and patient oriented x3 Initial Vital Signs Initial Vital Signs: Vital Signs Temperature 98.2 F 10/05/22 16:46 Pulse Rate 97 H 10/05/22 16:46 Respiratory Rate 16 10/05/22 16:46 Blood Pressure 118/77 10/05/22 16:46 Pulse Oximetry 97 10/05/22 16:46 Oxygen Delivery Method 10/05/22 16:46 <Edmar Walden DO - Last Filed: 10/05/22 21:58> Initial Vital Signs Initial Vital Signs: Vital Signs Temperature 98.2 F 10/05/22 16:46 Pulse Rate 97 H 10/05/22 16:46 Respiratory Rate 16 10/05/22 16:46 Blood Pressure 118/77 10/05/22 16:46 Pulse Oximetry 97 10/05/22 16:46 Oxygen Delivery Method 10/05/22 16:46 Course <Chuyita Scott PA-C - Last Filed: 10/05/22 20:36> Orders Ordered: ED Orders 10/05/22 16:54 Consult to [facility] - Welt Sole Layer Stat 10/05/22 17:25 COVID19 -Nasal RAPID/Pre-Proc Stat 10/05/22 17:29 Acetaminophen Stat Complete Blood Count AUTO DIFF Stat Comprehensive Metabolic Panel Stat Ethanol (ETOH) Stat Free T4, Direct Thyroxine Stat Salicylate Stat TSH w/ Reflex to FT4 Stat 10/05/22 17:36 EKG-12 Lead Stat 10/05/22 17:51 Urinalysis and Microscopic Stat Urine Culture Stat Urine Drug Screen, Rapid Stat 10/05/22 17:57 Test Urine Stat Vital Signs Vital signs: Vital Signs - 8 hr 10/05/22 16:46 Temperature 98.2 F Pulse Rate 97 H Respiratory Rate 16 Blood Pressure 118/77 Pulse Oximetry 97 Oxygen Delivery Method Room Air <DO Jean-Claude Barker Last Filed: 10/05/22 21:58> Orders Ordered: ED Orders 10/05/22 16:54 Consult to [facility] - [place] Sole Layer Stat 10/05/22 17:25 COVID19 -Nasal RAPID/Pre-Proc Stat 10/05/22 17:29 Acetaminophen Stat Complete Blood Count AUTO DIFF Stat Comprehensive Metabolic Panel Stat Ethanol (ETOH) Stat Free T4, Direct Thyroxine Stat Salicylate Stat TSH w/ Reflex to FT4 Stat 10/05/22 17:36 EKG-12 Lead Stat 10/05/22 17:51 Urinalysis and Microscopic Stat Urine Culture Stat Urine Drug Screen, Rapid Stat 10/05/22 17:57 Test Urine Stat Vital Signs Vital signs: Vital Signs - 8 hr 10/05/22 16:46 Temperature 98.2 F Pulse Rate 97 H Respiratory Rate 16 Blood Pressure 118/77 Pulse Oximetry 97 Oxygen Delivery Method Room Air MDM - Overdose <Chuyita Scott PA-C - Last Filed: 10/05/22 20:36> Lab Data 10/05/22 17:29 10/05/22 17:29 Labs: Lab Results 10/05/22 10/05/22 10/05/22 Range/Units 17:25 17:29 17:29 WBC 6.4 (4.5-11.0) X10^3/uL RBC 4.68 (4.0-5.2) X10^6/uL Hgb 12.6 (12.0-16.0) g/dL Hct 37.8 (36-46) % MCV 80.7 (80-100) fL MCH 26.9 (26-34) PG MCHC 33.4 (30-36) % RDW 13.6 (11.6-14.8) % Plt Count 315 (150-400) X10^3/uL Neut % (Auto) 61.0 (50-75) % Lymph % (Auto) 30.0 (25-40) % [place] % (Auto) 7.9 (3-14) % Eos % (Auto) 0.4 L (2-4) % Baso % (Auto) 0.7 (0-2) % Neut # (Auto) 3900 (7616-9734) /uL Lymph # (Auto) 1900 (6004-8267) /uL [place] # (Auto) 500 (0-900) /uL Eos # (Auto) 0 (0-450) /uL Baso # (Auto) 0 (0-100) /uL Sodium 140 (137-145) mmol/L Potassium 3.8 (3.4-5.1) mmol/L Chloride 96 L (98-107) mmol/L Carbon Dioxide 34 H (22-32) mmol/L BUN 9 (7-17) mg/dL Creatinine 0.96 (0.52-1.04) mg/dL Estimated GFR > 60 (>60) mL/min BUN/Creatinine Ratio 9.4 (6-22) Glucose 88 (70-100) mg/dL Calcium 9.7 (8.4-10.2) mg/dL Total Bilirubin 0.5 (0.2-1.3) mg/dL AST 46 H (14-36) IU/L ALT 35 H (<35) IU/L Alkaline Phosphatase 63 (38-126) U/L Total Protein 8.5 H (6.3-8.2) g/dL Albumin 4.5 (3.5-5.0) g/dL Globulin 4.0 (1.7-4.1) g/dL Albumin/Globulin Ratio 1.1 (1.0-2.8) TSH (0.47-4.68) uIU/mL Free T4 (0.78-2.19) ng/dL Urine Color Urine Appearance Urine pH (4.5-8.0) Ur Specific [place] (1.000-1.035) Urine Protein (Negative) Urine Glucose (UA) (Negative) g/dL Urine Ketones (NEGATIVE) Urine Occult Blood (Negative) Urine Nitrate (Negative) Urine Bilirubin (NEGATIVE) Urine Urobilinogen (0.2) E.U./dL Ur Leukocyte Esterase (NEGATIVE) Urine RBC (0-5/HPF) Urine WBC (0-5/HPF) Ur Squamous Epith Cells (0-5/HPF) Urine Bacteria (None) Urine Trichomonas (None Seen) Ur Culture Indicated? Urine Test (Negative) Salicylates < 1.0 (<20) mg/dL U Opiates 300ng/mL cut (Negative) Ur Oxycodone Screen (Negative) Urine Methadone Screen (Negative) Acetaminophen < 10 (10-30) ug/mL Ur Barbiturates Screen (Negative) U Tricyclic Antidepress (Negative) Ur Phencyclidine Scrn (Negative) Ur Amphetamines Screen (Negative) U Methamphetamines Scrn (Negative) Ur MDMA Scrn (Ecstasy) (Negative) U Benzodiazepines Scrn (Negative) Urine Cocaine Screen (Negative) U Marijuana (THC) Screen (Negative) Ethyl Alcohol < 10 ( - 10) mg/dL SARS-CoV-2 (PCR) Negative (Negative) 10/05/22 10/05/22 10/05/22 Range/Units 17:29 17:51 17:51 WBC (4.5-11.0) X10^3/uL RBC (4.0-5.2) X10^6/uL Hgb (12.0-16.0) g/dL Hct (36-46) % MCV (80-100) fL MCH (26-34) PG MCHC (30-36) % RDW (11.6-14.8) % Plt Count (150-400) X10^3/uL Neut % (Auto) (50-75) % Lymph % (Auto) (25-40) % [place] % (Auto) (3-14) % Eos % (Auto) (2-4) % Baso % (Auto) (0-2) % Neut # (Auto) (5289-0488) /uL Lymph # (Auto) (0627-0215) /uL [place] # (Auto) (0-900) /uL Eos # (Auto) (0-450) /uL Baso # (Auto) (0-100) /uL Sodium (137-145) mmol/L Potassium (3.4-5.1) mmol/L Chloride (98-107) mmol/L Carbon Dioxide (22-32) mmol/L BUN (7-17) mg/dL Creatinine (0.52-1.04) mg/dL Estimated GFR (>60) mL/min BUN/Creatinine Ratio (6-22) Glucose (70-100) mg/dL Calcium (8.4-10.2) mg/dL Total Bilirubin (0.2-1.3) mg/dL AST (14-36) IU/L ALT (<35) IU/L Alkaline Phosphatase (38-126) U/L Total Protein (6.3-8.2) g/dL Albumin (3.5-5.0) g/dL Globulin (1.7-4.1) g/dL Albumin/Globulin Ratio (1.0-2.8) TSH 0.16 L (0.47-4.68) uIU/mL Free T4 1.34 (0.78-2.19) ng/dL Urine Color Yellow Urine Appearance Clear Urine pH 5.5 (4.5-8.0) Ur Specific [place] 1.025 (1.000-1.035) Urine Protein Negative (Negative) Urine Glucose (UA) Negative (Negative) g/dL Urine Ketones Negative (NEGATIVE) Urine Occult Blood Negative (Negative) Urine Nitrate Negative (Negative) Urine Bilirubin Negative (NEGATIVE) Urine Urobilinogen 1.0 (0.2) E.U./dL Ur Leukocyte Esterase 2+ H (NEGATIVE) Urine RBC 0-1/hpf (0-5/HPF) Urine WBC 10-30/hpf H (0-5/HPF) Ur Squamous Epith Cells 5-10 /hpf H (0-5/HPF) Urine Bacteria Moderate (10-30) H (None) Urine Trichomonas 5-10/hpf H (None Seen) Ur Culture Indicated? Specimen cultured Urine Test (Negative) Salicylates (<20) mg/dL U Opiates 300ng/mL cut Negative (Negative) Ur Oxycodone Screen Negative (Negative) Urine Methadone Screen Negative (Negative) Acetaminophen (10-30) ug/mL Ur Barbiturates Screen Negative (Negative) U Tricyclic Antidepress Negative (Negative) Ur Phencyclidine Scrn Negative (Negative) Ur Amphetamines Screen Positive H (Negative) U Methamphetamines Scrn Positive H (Negative) Ur MDMA Scrn (Ecstasy) Negative (Negative) U Benzodiazepines Scrn Negative (Negative) Urine Cocaine Screen Negative (Negative) U Marijuana (THC) Screen Negative (Negative) Ethyl Alcohol ( - 10) mg/dL SARS-CoV-2 (PCR) (Negative) 10/05/22 10/05/22 Range/Units 17:51 17:57 WBC (4.5-11.0) X10^3/uL RBC (4.0-5.2) X10^6/uL Hgb (12.0-16.0) g/dL Hct (36-46) % MCV (80-100) fL MCH (26-34) PG MCHC (30-36) % RDW (11.6-14.8) % Plt Count (150-400) X10^3/uL Neut % (Auto) (50-75) % Lymph % (Auto) (25-40) % [place] % (Auto) (3-14) % Eos % (Auto) (2-4) % Baso % (Auto) (0-2) % Neut # (Auto) (2415-3187) /uL Lymph # (Auto) (8292-5971) /uL [place] # (Auto) (0-900) /uL Eos # (Auto) (0-450) /uL Baso # (Auto) (0-100) /uL Sodium (137-145) mmol/L Potassium (3.4-5.1) mmol/L Chloride (98-107) mmol/L Carbon Dioxide (22-32) mmol/L BUN (7-17) mg/dL Creatinine (0.52-1.04) mg/dL Estimated GFR (>60) mL/min BUN/Creatinine Ratio (6-22) Glucose (70-100) mg/dL Calcium (8.4-10.2) mg/dL Total Bilirubin (0.2-1.3) mg/dL AST (14-36) IU/L ALT (<35) IU/L Alkaline Phosphatase (38-126) U/L Total Protein (6.3-8.2) g/dL Albumin (3.5-5.0) g/dL Globulin (1.7-4.1) g/dL Albumin/Globulin Ratio (1.0-2.8) TSH (0.47-4.68) uIU/mL Free T4 (0.78-2.19) ng/dL Urine Color Urine Appearance Urine pH (4.5-8.0) Ur Specific [place] (1.000-1.035) Urine Protein (Negative) Urine Glucose (UA) (Negative) g/dL Urine Ketones (NEGATIVE) Urine Occult Blood (Negative) Urine Nitrate (Negative) Urine Bilirubin (NEGATIVE) Urine Urobilinogen (0.2) E.U./dL Ur Leukocyte Esterase (NEGATIVE) Urine RBC (0-5/HPF) Urine WBC (0-5/HPF) Ur Squamous Epith Cells (0-5/HPF) Urine Bacteria (None) Urine Trichomonas (None Seen) Ur Culture Indicated? Urine Test Negative (Negative) Salicylates (<20) mg/dL U Opiates 300ng/mL cut (Negative) Ur Oxycodone Screen (Negative) Urine Methadone Screen (Negative) Acetaminophen (10-30) ug/mL Ur Barbiturates Screen (Negative) U Tricyclic Antidepress (Negative) Ur Phencyclidine Scrn (Negative) Ur Amphetamines Screen (Negative) U Methamphetamines Scrn (Negative) Ur MDMA Scrn (Ecstasy) (Negative) U Benzodiazepines Scrn (Negative) Urine Cocaine Screen (Negative) U Marijuana (THC) Screen (Negative) Ethyl Alcohol ( - 10) mg/dL SARS-CoV-2 (PCR) Cancelled (Negative) MDM Narrative Medical decision making narrative: 26-year-old female with a history of methamphetamine and opioid abuse presents to the ED accompanied by her mother, seeking inpatient detox for the drug use. Will rule out organic cause of symptoms, then medically clear for detox. Social work has been consulted, there is a possibility that patient might be accepted into [facility]. Patient's workup is significant for a UTI, Trichomonas infection. Patient urine is positive for methamphetamine, amphetamine. The TSH was low at 0.16, however free T4 is within normal limits at 1.34, therefore does not contribute to patient's symptoms. EKG is NSG, no acute ST-T changes. At this point, patient has been prescribed antibiotics for the UTI and Trichomonas, which patient's mother has already picked up from the drug store. Patient is medically cleared to go into inpatient detox. Waiting to hear back from [facility] regarding placement. Patient is signed out to Dr. Walden. <Edmar Walden, DO - Last Filed: 10/05/22 21:58> Lab Data Labs: Lab Results 10/05/22 10/05/22 10/05/22 Range/Units 17:25 17:29 17:29 WBC 6.4 (4.5-11.0) X10^3/uL RBC 4.68 (4.0-5.2) X10^6/uL Hgb 12.6 (12.0-16.0) g/dL Hct 37.8 (36-46) % MCV 80.7 (80-100) fL MCH 26.9 (26-34) PG MCHC 33.4 (30-36) % RDW 13.6 (11.6-14.8) % Plt Count 315 (150-400) X10^3/uL Neut % (Auto) 61.0 (50-75) % Lymph % (Auto) 30.0 (25-40) % [place] % (Auto) 7.9 (3-14) % Eos % (Auto) 0.4 L (2-4) % Baso % (Auto) 0.7 (0-2) % Neut # (Auto) 3900 (5496-5988) /uL Lymph # (Auto) 1900 (7018-5175) /uL [place] # (Auto) 500 (0-900) /uL Eos # (Auto) 0 (0-450) /uL Baso # (Auto) 0 (0-100) /uL Sodium 140 (137-145) mmol/L Potassium 3.8 (3.4-5.1) mmol/L Chloride 96 L (98-107) mmol/L Carbon Dioxide 34 H (22-32) mmol/L BUN 9 (7-17) mg/dL Creatinine 0.96 (0.52-1.04) mg/dL Estimated GFR > 60 (>60) mL/min BUN/Creatinine Ratio 9.4 (6-22) Glucose 88 (70-100) mg/dL Calcium 9.7 (8.4-10.2) mg/dL Total Bilirubin 0.5 (0.2-1.3) mg/dL AST 46 H (14-36) IU/L ALT 35 H (<35) IU/L Alkaline Phosphatase 63 (38-126) U/L Total Protein 8.5 H (6.3-8.2) g/dL Albumin 4.5 (3.5-5.0) g/dL Globulin 4.0 (1.7-4.1) g/dL Albumin/Globulin Ratio 1.1 (1.0-2.8) TSH (0.47-4.68) uIU/mL Free T4 (0.78-2.19) ng/dL Urine Color Urine Appearance Urine pH (4.5-8.0) Ur Specific [place] (1.000-1.035) Urine Protein (Negative) Urine Glucose (UA) (Negative) g/dL Urine Ketones (NEGATIVE) Urine Occult Blood (Negative) Urine Nitrate (Negative) Urine Bilirubin (NEGATIVE) Urine Urobilinogen (0.2) E.U./dL Ur Leukocyte Esterase (NEGATIVE) Urine RBC (0-5/HPF) Urine WBC (0-5/HPF) Ur Squamous Epith Cells (0-5/HPF) Urine Bacteria (None) Urine Trichomonas (None Seen) Ur Culture Indicated? Urine Test (Negative) Salicylates < 1.0 (<20) mg/dL U Opiates 300ng/mL cut (Negative) Ur Oxycodone Screen (Negative) Urine Methadone Screen (Negative) Acetaminophen < 10 (10-30) ug/mL Ur Barbiturates Screen (Negative) U Tricyclic Antidepress (Negative) Ur Phencyclidine Scrn (Negative) Ur Amphetamines Screen (Negative) U Methamphetamines Scrn (Negative) Ur MDMA Scrn (Ecstasy) (Negative) U Benzodiazepines Scrn (Negative) Urine Cocaine Screen (Negative) U Marijuana (THC) Screen (Negative) Ethyl Alcohol < 10 ( - 10) mg/dL SARS-CoV-2 (PCR) Negative (Negative) 10/05/22 10/05/22 10/05/22 Range/Units 17:29 17:51 17:51 WBC (4.5-11.0) X10^3/uL RBC (4.0-5.2) X10^6/uL Hgb (12.0-16.0) g/dL Hct (36-46) % MCV (80-100) fL MCH (26-34) PG MCHC (30-36) % RDW (11.6-14.8) % Plt Count (150-400) X10^3/uL Neut % (Auto) (50-75) % Lymph % (Auto) (25-40) % [place] % (Auto) (3-14) % Eos % (Auto) (2-4) % Baso % (Auto) (0-2) % Neut # (Auto) (9262-6062) /uL Lymph # (Auto) (3576-7204) /uL [place] # (Auto) (0-900) /uL Eos # (Auto) (0-450) /uL Baso # (Auto) (0-100) /uL Sodium (137-145) mmol/L Potassium (3.4-5.1) mmol/L Chloride (98-107) mmol/L Carbon Dioxide (22-32) mmol/L BUN (7-17) mg/dL Creatinine (0.52-1.04) mg/dL Estimated GFR (>60) mL/min BUN/Creatinine Ratio (6-22) Glucose (70-100) mg/dL Calcium (8.4-10.2) mg/dL Total Bilirubin (0.2-1.3) mg/dL AST (14-36) IU/L ALT (<35) IU/L Alkaline Phosphatase (38-126) U/L Total Protein (6.3-8.2) g/dL Albumin (3.5-5.0) g/dL Globulin (1.7-4.1) g/dL Albumin/Globulin Ratio (1.0-2.8) TSH 0.16 L (0.47-4.68) uIU/mL Free T4 1.34 (0.78-2.19) ng/dL Urine Color Yellow Urine Appearance Clear Urine pH 5.5 (4.5-8.0) Ur Specific [place] 1.025 (1.000-1.035) Urine Protein Negative (Negative) Urine Glucose (UA) Negative (Negative) g/dL Urine Ketones Negative (NEGATIVE) Urine Occult Blood Negative (Negative) Urine Nitrate Negative (Negative) Urine Bilirubin Negative (NEGATIVE) Urine Urobilinogen 1.0 (0.2) E.U./dL Ur Leukocyte Esterase 2+ H (NEGATIVE) Urine RBC 0-1/hpf (0-5/HPF) Urine WBC 10-30/hpf H (0-5/HPF) Ur Squamous Epith Cells 5-10 /hpf H (0-5/HPF) Urine Bacteria Moderate (10-30) H (None) Urine Trichomonas 5-10/hpf H (None Seen) Ur Culture Indicated? Specimen cultured Urine Test (Negative) Salicylates (<20) mg/dL U Opiates 300ng/mL cut Negative (Negative) Ur Oxycodone Screen Negative (Negative) Urine Methadone Screen Negative (Negative) Acetaminophen (10-30) ug/mL Ur Barbiturates Screen Negative (Negative) U Tricyclic Antidepress Negative (Negative) Ur Phencyclidine Scrn Negative (Negative) Ur Amphetamines Screen Positive H (Negative) U Methamphetamines Scrn Positive H (Negative) Ur MDMA Scrn (Ecstasy) Negative (Negative) U Benzodiazepines Scrn Negative (Negative) Urine Cocaine Screen Negative (Negative) U Marijuana (THC) Screen Negative (Negative) Ethyl Alcohol ( - 10) mg/dL SARS-CoV-2 (PCR) (Negative) 10/05/22 10/05/22 Range/Units 17:51 17:57 WBC (4.5-11.0) X10^3/uL RBC (4.0-5.2) X10^6/uL Hgb (12.0-16.0) g/dL Hct (36-46) % MCV (80-100) fL MCH (26-34) PG MCHC (30-36) % RDW (11.6-14.8) % Plt Count (150-400) X10^3/uL Neut % (Auto) (50-75) % Lymph % (Auto) (25-40) % [place] % (Auto) (3-14) % Eos % (Auto) (2-4) % Baso % (Auto) (0-2) % Neut # (Auto) (8230-2795) /uL Lymph # (Auto) (3870-9923) /uL [place] # (Auto) (0-900) /uL Eos # (Auto) (0-450) /uL Baso # (Auto) (0-100) /uL Sodium (137-145) mmol/L Potassium (3.4-5.1) mmol/L Chloride (98-107) mmol/L Carbon Dioxide (22-32) mmol/L BUN (7-17) mg/dL Creatinine (0.52-1.04) mg/dL Estimated GFR (>60) mL/min BUN/Creatinine Ratio (6-22) Glucose (70-100) mg/dL Calcium (8.4-10.2) mg/dL Total Bilirubin (0.2-1.3) mg/dL AST (14-36) IU/L ALT (<35) IU/L Alkaline Phosphatase (38-126) U/L Total Protein (6.3-8.2) g/dL Albumin (3.5-5.0) g/dL Globulin (1.7-4.1) g/dL Albumin/Globulin Ratio (1.0-2.8) TSH (0.47-4.68) uIU/mL Free T4 (0.78-2.19) ng/dL Urine Color Urine Appearance Urine pH (4.5-8.0) Ur Specific [place] (1.000-1.035) Urine Protein (Negative) Urine Glucose (UA) (Negative) g/dL Urine Ketones (NEGATIVE) Urine Occult Blood (Negative) Urine Nitrate (Negative) Urine Bilirubin (NEGATIVE) Urine Urobilinogen (0.2) E.U./dL Ur Leukocyte Esterase (NEGATIVE) Urine RBC (0-5/HPF) Urine WBC (0-5/HPF) Ur Squamous Epith Cells (0-5/HPF) Urine Bacteria (None) Urine Trichomonas (None Seen) Ur Culture Indicated? Urine Test Negative (Negative) Salicylates (<20) mg/dL U Opiates 300ng/mL cut (Negative) Ur Oxycodone Screen (Negative) Urine Methadone Screen (Negative) Acetaminophen (10-30) ug/mL Ur Barbiturates Screen (Negative) U Tricyclic Antidepress (Negative) Ur Phencyclidine Scrn (Negative) Ur Amphetamines Screen (Negative) U Methamphetamines Scrn (Negative) Ur MDMA Scrn (Ecstasy) (Negative) U Benzodiazepines Scrn (Negative) Urine Cocaine Screen (Negative) U Marijuana (THC) Screen (Negative) Ethyl Alcohol ( - 10) mg/dL SARS-CoV-2 (PCR) Cancelled (Negative) MDM Narrative Medical decision making narrative: 26-year-old female with a history of methamphetamine and opioid abuse presents to the ED accompanied by her mother, seeking inpatient detox for the drug use. Will rule out organic cause of symptoms, then medically clear for detox. Social work has been consulted, there is a possibility that patient might be accepted into [facility]. Patient's workup is significant for a UTI, Trichomonas infection. Patient urine is positive for methamphetamine, amphetamine. The TSH was low at 0.16, however free T4 is within normal limits at 1.34, therefore does not contribute to patient's symptoms. EKG is NSG, no acute ST-T changes. At this point, patient has been prescribed antibiotics for the UTI and Trichomonas, which patient's mother has already picked up from the drug store. Patient is medically cleared to go into inpatient detox. Waiting to hear back from [facility] regarding placement. Patient is signed out to Dr. Walden. Dr Walden: Received turned over. Review patient's history and physical and workup up to this point. Patient is medically cleared. Patient has been accepted to [facility]. Did inform the patient and her mother of this. Will send the patient by BLS. She has antibiotics for her infections. Naloxone at Discharge Meets criteria for naloxone at discharge?: No Discharge Plan Departure Patient Disposition: Home Clinical Impression: Substance abuse, Urinary tract infection, Infection due to trichomonas Activity Restrictions/Additional Instructions: You have been accepted to [facility] and are being discharged from the emergency department to go there for further help of your substance abuse. It was also found during your workup today that you do have a Trichomonas infection and also a urinary tract infection. It is important that you take the antibioti cs that you were given as directed. Return to the emergency department for new symptoms. Prescriptions: New nitrofurantoin monohyd/m-cryst [Macrobid] 100 mg capsule 100 mg PO Q12H 5 Days Qty: 10 0RF Rx Instructions: must administer with a meal/food metronidazole 500 mg tablet 500 mg PO Q12H 7 Days Qty: 14 0RF Referrals: Miscellaneous,Doctor, MD [Primary Care Provider] - Stand Alone Forms: Patient Portal/API
[2022-10-05 19:32] LABS: Free T4, Direct Thyroxine 1.34 ng/dL (0.78-2.19)
--- NOTE | 2022-10-05 19:59 | PC.NURSE ---
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 CLINICAL TRIAL ASSOCIATE updating pt and mother.
--- NOTE | 2022-10-05 21:03 | PC.NURSE ---
Spoke to [facility] [phone], state they are reviewing and will reach back out once decision is made.
--- NOTE | 2022-10-05 22:06 | PC.NURSE ---
pt accepted at [facility], voluntary, pt to be transported via s, transport eta [id number], notified [facility] bing [phone]. mother at bs with patient and both aware of acceptance and transport time.
[2022-10-05 23:11] VITALS: BP 120/81; PULSE 90; RESP 16; TEMP 36.6; O2SAT 100
== END 2022-10-05 23:14 | disposition home or self-care (01) ==
PROVIDERS: Emergency Provider Student in an Organized Health Care Education/Training Program
DX: F19.10 Other psychoactive substance abuse, uncomplicated (principal); F15.10 Other stimulant abuse, uncomplicated; F11.10 Opioid abuse, uncomplicated; N39.0 Urinary tract infection, site not specified; A59.01 Trichomonal vulvovaginitis; Z20.822 Contact with and (suspected) exposure to COVID-19
CPT/HCPCS: 36415; 80053; 80305; 80320; 80329; 81001; 81025; 84439; 84443; 85025; 87086; 87635; 93005; 93010; 99281; 99283; C9803; G0480

== ENCOUNTER 2023-06-13 06:15 | Emergency (ER) | payer OTHER, MEDICAID, SELFPAY ==
[2023-06-13 06:25] VITALS: BP 143/68; PULSE 59; RESP 20; TEMP 36.6; O2SAT 99
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
[2023-06-13 06:43] LABS: Pregnancy Test Urine Negative (Negative)
[2023-06-13 07:03] LABS: COVID19 -Nasal RAPID Negative (Negative)
[2023-06-13 08:10] LABS: Appearance Urine UA SL CLOUDY; Bilirubin Urine UA NEGATIVE (NEGATIVE); Color Urine UA YELLOW; Glucose Urine UA NEGATIVE (Negative); Ketones Urine UA NEGATIVE (NEGATIVE); Leukocyte Esterase Urine UA NEGATIVE (NEGATIVE); Nitrite Urine UA NEGATIVE (Negative); Occult Blood Urine UA NEGATIVE (Negative); Protein Urine UA NEGATIVE (Negative); Specific Gravity Urine UA 1.025 (1.000-1.035)
[2023-06-13 08:17] LABS: Ur Creatinine Normal (Normal); Ur Specific Gravity Normal (Normal); Urine pH Normal (Normal)
[2023-06-13 08:18] LABS: UR Morphine/Opiate cutoff 300 Negative (Negative); Urine Amphetamines Positive (Negative); Urine Barbiturates Negative (Negative); Urine Benzodiazepines Negative (Negative); Urine Cocaine Negative (Negative); Urine MDMA Negative (Negative); Urine Methadone Negative (Negative); Urine Methamphetamines Positive (Negative); Urine Oxycodone Negative (Negative); Urine Phencyclidine Negative (Negative); Urine Tetrahydrocannabinol Negative (Negative); Urine Tricyclic Antidepressant Negative (Negative)
[2023-06-13 08:20] LABS: pH Urine UA 5.5 (4.5-8.0)
[2023-06-13 08:21] LABS: Squamous Epithelial Cell Urine 5-10 /HPF (0-5/HPF); WBC Urine 1-5/HPF (0-5/HPF)
[2023-06-13 08:22] LABS: Bacteria Urine Few (2-10); Culture Indicated Urine Cult Not Indicated; RBC Urine None Seen (0-5/HPF)
[2023-06-13 09:36] LABS: Urine N gonorrhoeae DETECTED
[2023-06-13 09:37] LABS: Urine Chlamydia DETECTED
[2023-06-13 10:05] VITALS: BP 121/75; PULSE 94; RESP 16; O2SAT 100
[2023-06-13] MEDS: cefTRIAXone 1,000 MG VIAL 500 MG IM (10:07)
[2023-06-13] MEDS: LIDOCAINE 1% (PF) 5 ML 2.1 ML INJ (10:08)
[2023-06-13 10:15] VITALS: BP 140/65; PULSE 60; RESP 20; TEMP 36.7; O2SAT 94
== END 2023-06-13 10:16 | disposition home or self-care (01) ==
PROVIDERS: Emergency Medicine; Emergency Provider Emergency Medicine
DX: A54.9 Gonococcal infection, unspecified (principal); N76.0 Acute vaginitis; A74.9 Chlamydial infection, unspecified; F15.10 Other stimulant abuse, uncomplicated; Z20.822 Contact with and (suspected) exposure to COVID-19
CPT/HCPCS: 80305; 81001; 81025; 87070; 87077; 87147; 87205; 87210; 87255; 87491; 87591; 87635; 96372; 99283; C9803; J0696